=== PATIENT | male | born 1960 | race Caucasian/White ===

== ENCOUNTER → 2017-08-28 | Outpatient (CLI) | payer MEDICARE, OTHER ==
--- NOTE | 2017-08-28 21:42 | PE ---
EXAMINATION TYPE: PET CT fusion skull to thigh DATE OF EXAM: 08/28/2017 COMPARISON: Outside CTA chest August 12, 2017 HISTORY: Solitary pulmonary nodule per order . Abnormal CT. TECHNIQUE: Following the intravenous administration of 14.89 mCi of F-18 FDG, whole body images are performed from the skull base to the midthigh. Images are reviewed on the computer in the coronal, a xial, and sagittal planes. Reconstructed rotating images are created on independent workstation and reviewed on the computer. A localization and attenuation correction CT is performed in conjunction with the PET scan. SCAN: Initial Scan FINDINGS: SKULL BASE AND NECK: There is roughly 1.4 cm hypermetabolic focus posterior left parotid gland axial image 21. Max SUV is 9.06. There is smaller roughly 1 cm hypermetabolic focus deep right parotid gla nd axial image 20. Max SUV is 3.51. Bilateral parotid masses or neoplasms need to be considered. Michael elation with contrast-enhanced neck CT is advised. CHEST, MEDIASTINUM, AND HILAR REGION: There is persistent moderate-sized left-sided pleural fluid col lection which does not completely layer dependently but does not show hypermetabolic uptake. There is associated left lung compressive atelectasis. There is persistent suspicious posterior right lower lobe nodule measuring 2.6 x 1.4 cm axial image 1 26. There is mild hypermetabolic uptake, max SUV is 2.6 as well as adjacent groundglass opacity with mild hypermetabolic uptake and more focal consolidation in the dependent right lung base extending in feriorly to the diaphragm. There is background of advanced emphysematous change redemonstrated. No suspicious hypermetabolic upt jose rafael in thorax is clearly identified. There are prominent but subcentimeter thoracic lymph nodes, for reference axial image 84 AP window and paratracheal region, largest measures 1.8 x 0.9 cm right parac arinal level axial image 84 but no definitive hypermetabolic uptake is seen. This dominant lymph node has max SUV 2.57. ABDOMEN AND PELVIS: No suspicious hypermetabolic uptake is present. No adrenal masses are seen. Lori l bladder excretion is noted. OSSEOUS STRUCTURES: No suspicious hypermetabolic uptake is present. OTHER CT: There is mild calcified plaque at bilateral carotid bulbs. Main pulmonary artery measures 2.8 cm diameter on axial image 93. Adjacent ascending aorta measures u p to 3.5 cm in diameter. Coronary artery calcification is seen which is noted marker for coronary artery disease. There is moderate calcified plaque in the abdominal aorta extending into iliac branch vessels. There are scattered pelvic phleboliths. Patient has very little intra-abdominal fat making evaluation suboptimal. There is dominant 1.0 cm phlebolith right pelvis anteriorly axial image 219. There is postsurgical change in the lower lumbar spine. There is bilateral laminectomy defects and sp inous process resection. IMPRESSION: No convincing evidence of primary pulmonary malignancy, nonspecific areas of mild hyperme tabolic uptake in the suspicious posterior right basilar nodule favors postinflammatory with similar mild hypermetabolic in the prominent thoracic lymph nodes. I would likely advise short-term contrast enhanced CT follow-up in 2-3 months time. This would determine if repeat PET/CT would be advised. Att ention to bilateral parotid glands which is more suspicious and warrants more immediate follow-up.
== END | disposition home or self-care (01) ==
LOC: RADPETMAIN 10:07
PROVIDERS: ATTEND Internal Medicine Critical Care Medicine
DX: R91.1 Solitary pulmonary nodule (principal)
CPT/HCPCS: 78815; A9552

== ENCOUNTER → 2018-06-20 | Outpatient (CLI) | payer MEDICARE ==
--- NOTE | 2018-06-22 07:50 | CT ---
EXAMINATION TYPE: CT chest w con DATE OF EXAM: 06/20/2018 COMPARISON: 12/02/2017, 08/28/2017, and 08/12/2017 HISTORY: 57-year-old male Shortness of breath and cough. Lung mass. TECHNIQUE: Contiguous axial scanning of the chest after the administration of 100ml mL of Isovue M300 . Coronal/sagittal reconstructions performed. CT DLP: 347.4mGycm. Automatic exposure control utilized for a dose reduction. FINDINGS: Heart normal size with trace anterior basilar pericardial fluid. Aortic root and borderline aneurysmal at 4.0 cm. Conventional arch vessel branching anatomy. Mediastinal lymph nodes are nonenlarged and borderline enlarged, either stable or minimally smaller f rom prior exam measuring up to 1 cm in the precarinal region. This is unchanged. AP window lymph node measures 6 mm currently versus 7 mm on 12/02/2017. Right hilar lymph nodes measure 1.7 cm and a right infrahilar bronchial lymph node measures 1.4 cm. These are unchanged from 12/02/2017 but all of these are noted to be smaller as compared to 08/12/2017. No progressive lymphadenopathy. There is advanced bullous emphysema with improved left pleural effusion. A residual small left pleura l effusion remains with adjacent pleural parenchymal thickening. There is some curvilinear densities extending from the pleural margin centrally suggesting areas of pleural-parenchymal scarring and roun ded atelectasis. Prominent dependent subpleural opacities remain at the right mid and lower lung with 2 areas of more focal masslike configuration posteriorly axial image 51 measuring 3.5 cm versus 3.3 cm on 12/02/2017 a nd 2.5 cm on 08/12/2017. Second area more inferiorly and posterolaterally measures 3.[address] able from 12/02/2017 and smaller from 08/12/2017 where it measured 4.4 cm. However, surrounding patchy airspace disease appears increased from 08/12/2017 and slightly increased from 12/02/2017 as well. Co ntinued follow-up is recommended. Visualized upper abdomen shows no gross abnormality. Bones: No osseous destructive process. IMPRESSION: 1. Advanced bullous emphysema. 2. Improved left pleural effusion. A residual small left effusion remains, likely a complicated or ch ronic effusion. Adjacent subpleural densities are largely stable from 08/12/2017 and suspected to rep resent areas of pleural-parenchymal scarring and developing rounded atelectasis 3. Focal subpleural masslike areas of opacity at the posterior right lung base are relatively stable from 12/02/2017. They measure up to 3.5 cm. One of these appears larger from 08/12/2017 where it measu red 2.5 cm and the second appears smaller where it measured 4.4 cm. However, the surrounding airspace disease is increased from 08/12/2017 and slightly increased from 12/02/2017 as well. Correlate to exc lude infection. Continued follow-up recommended. Developing areas of rounded atelectasis and low-grad e neoplasm remain possibilities. The latter is considered somewhat less likely as one area shows slig ht decrease in size 4. Hilar and mediastinal lymphadenopathy is either stable or smaller, measuring up to 1.7 cm in the r ight hilum.
== END | disposition home or self-care (01) ==
LOC: RADCTMAIN 15:48
PROVIDERS: ATTEND Internal Medicine Critical Care Medicine
DX: J43.9 Emphysema, unspecified (principal); J90 Pleural effusion, not elsewhere classified; R59.0 Localized enlarged lymph nodes
CPT/HCPCS: 71260; Q9967

== ENCOUNTER → 2019-03-03 | Outpatient (CLI) | payer OTHER ==
--- NOTE | 2019-03-03 11:53 | CT ---
EXAMINATION TYPE: CT soft tissue neck w con DATE OF EXAM: 03/03/2019 HISTORY: No complaints at time of service COMPARISON: Chest CT June 20, 2018. PET CT August 28, 2017 CT DLP: 254.8 mGycm. Automated Exposure Control for Dose Reduction was Utilized. TECHNIQUE: CT scan of the neck is performed with IV Contrast, patient injected with 100 mL of Isovue 300, axial images are obtained, coronal and sagittal reformatted images are reviewed. FINDINGS: Airway: Thyroid gland remains normal in size no suspicious adjacent mass or nodularity is seen. There are few subcentimeter lymph nodes bilaterally for reference two are seen in left back axial image 41 supraclavicular region. Background moderate to advanced emphysematous change of the visualized upper lobes. Parotid/submandibular glands: No gross abnormality seen. Carotid/Vascular Structures: Mild calcified plaque bilateral carotid bulb. Codominant vertebrobasilar system. Osseous Structures: Loss of normal cervical curvature with mild disc space narrowing and moderate spu rring C5-C6 level . Moderate spurring and disc space narrowing C6-C7 level. Other: Scattered subcentimeter lymph nodes throughout the neck bilaterally. No definitive greater donte n 1 cm neck adenopathy. IMPRESSION: No suspicious adenopathy or extra thyroid mass to suggest parathyroid adenoma.
== END | disposition home or self-care (01) ==
LOC: RADCTMAIN 08:16
DX: D44.2 Neoplasm of uncertain behavior of parathyroid gland (principal)
CPT/HCPCS: 70491

== ENCOUNTER → 2019-06-22 | Outpatient (CLI) | payer MEDICARE ==
--- NOTE | 2019-06-22 10:07 | CT ---
EXAMINATION TYPE: CT chest w con DATE OF EXAM: 06/22/2019 COMPARISON: 06/20/2018 HISTORY: Lung mass CT DLP: 523 mGycm Automated exposure control for dose reduction was used. CONTRAST: CT scan of the chest is performed with IV Contrast, patient injected with 100 ml mL of Isovue 300. FINDINGS: LUNGS: There is a new left lower lobe pulmonary mass measuring 2.7 cm in greatest dimension with pleu ral extension. Subpleural masslike area right lower lobe is larger in size and measures 4.2 x 3.3 cm per 5 x 2.2 cm. Additional pleural thickening left lower lobe. Right lower lobe infiltrate is unchang ed. Severe upper lobe and midlung emphysematous change. MEDIASTINUM: Progression of mediastinal adenopathy with an enlarged necrotic AP window lymph node nanci suring 3.5 x 2.3 cm. Left hilar adenopathy measuring 3.7 x 2.3 cm. Left infrahilar adenopathy measuri ng 1.9 cm all new. There is subcarinal adenopathy measuring 2.2 cm. Low right paratracheal lymph node measures 1.1 cm. Additional AP window lymph node measures 1.2 cm. Thoracic aorta is of normal calibe r. The heart is not enlarged. UPPER ABDOMEN: No significant abnormality appreciated. OTHER: No additional significant abnormality is seen. IMPRESSION: 1. There is a new left lower lobe pulmonary mass with an enlarging subpleural mass noted the right lo wer lobe. There is also new hilar and mediastinal adenopathy. The findings are felt to reflect malign kurtis until proven otherwise. PET/CT and/or tissue diagnosis is advised. 2. Severe emphysematous changes as discussed.
== END | disposition home or self-care (01) ==
LOC: RADCTMAIN 08:54
PROVIDERS: ATTEND Internal Medicine Critical Care Medicine
DX: R91.8 Other nonspecific abnormal finding of lung field (principal)
CPT/HCPCS: 71260; Q9967

== ENCOUNTER 2019-12-23 16:36 | Inpatient (IN) | payer OTHER, MEDICARE ==
[2019-12-23] MEDS ORDERED: SODIUM CHLORIDE 0.9% 1,000 ML IV ONE (16:48)
--- NOTE | 2019-12-23 16:59 | ED ---
General Adult HPI - General Chief complaint: Overdose Stated complaint: Poss Overdose Time Seen by Provider: 12/23/19 16:45 Source: EMS, RN notes reviewed, old records reviewed Mode of arrival: EMS Limitations: altered mental status, physical limitation - History of Present Illness Initial comments: This is a 59-year-old male who is brought in by EMS. Patient himself is unable to give any history so the whole history is given by EMS. According to EMS he has a past history of COPD and some back pain. They stated that family stated he took 47 Valium and the last 6 days. According to he is been altered for 6 days but every day a little worse and today he was barely responsive. She decided to call EMS. There is been no history of any difficulty breathing no history of any fever or cough. There's been no history of any chest pain. His been no history of any abdominal pain nausea vomiting diarrhea. The main reason for the cause a significant altered mental status over 6 days. EMS did note that his heart rate was about 200 when he arrived and he is more responsive now following simple commands whereas initially he was not following anything. Patient did receive a liter fluid on the way in. - Related Data Home Medications Medication Instructions Recorded Confirmed Diazepam [Valium] 5 mg PO TID PRN 08/12/17 08/12/17 Ibuprofen [Motrin] 800 mg PO Q8H PRN 08/12/17 08/12/17 Allergies Allergy/AdvReac Type Severity Reaction Status Date / Time No Known Allergies Allergy Verified 08/12/17 15:12 Review of Systems ROS Statement: Those systems with pertinent positive or pertinent negative responses have been documented in the HPI. ROS Other: All systems not noted in ROS Statement are negative. Past Medical History Past Medical History: COPD History of Any Multi-Drug Resistant Organisms: None Reported Past Surgical History: Appendectomy, Orthopedic Surgery Additional Past Surgical History / Comment(s): lower back surgery, right BKA Past Anesthesia/Blood Transfusion Reactions: Unable to Obtain Past Psychological History: No Psychological Hx Reported Smoking Status: Current every day smoker Past Alcohol Use History: Occasional Past Drug Use History: Marijuana General Exam - General Exam Comments Initial Comments: GENERAL: Patient is well-developed and well-nourished. Patient is nontoxic and patient responds to simple commands but does not answer questions and is very lethargic ENT: Neck is soft and supple. No significant lymphadenopathy is noted. Oropharynx is clear. Moist mucous membranes. Neck has full range of motion without eliciting any pain. EYES: The sclera were anicteric and conjunctiva were pink and moist. Extraocular movements were intact and pupils were equal round and reactive to light. Eyelids were unremarkable. PULMONARY: Unlabored respirations. Good breath sounds bilaterally. No audible rales rhonchi or wheezing was noted. CARDIOVASCULAR: Patient is tachycardic in the 190 beats a minute ABDOMEN: Soft and nontender with normal bowel sounds. SKIN: Skin is clear with no lesions or rashes and otherwise unremarkable. NEUROLOGIC: Patient is alert and oriented 0 Cranial nerves II through XII are grossly intact. MUSCULOSKELETAL: BKA on the right LYMPHATICS: No significant lymphadenopathy is noted PSYCHIATRIC: Unable to assess at this time Limitations: altered mental status, physical limitation Course Vital Signs 12/23/19 12/23/19 12/23/19 16:46 19:03 19:17 Temperature 97.3 F L Pulse Rate 186 H 98 170 H Respiratory 26 H 26 H 28 H Rate Blood Pressure 102/88 98/79 111/85 O2 Sat by Pulse 98 98 97 Oximetry 12/23/19 19:51 Temperature Pulse Rate 142 H Respiratory 26 H Rate Blood Pressure 106/88 O2 Sat by Pulse 97 Oximetry Medical Decision Making - Medical Decision Making EKG shows supraventricular tachycardia at 191 bpm QRS is 82 QT interval is 238 QTC is 424. Patient blood pressure dropped at one point the heart rate in the 60s. I rep eated another EKG but very shortly thereafter the patient's heart rate went back up to 180. EKG shows an atrial flutter flutter again at a rapid ventricular response of 175 dresses 80 QT interval is 264 QTC is 450. I started the patient on amiodarone because of blood pressure was tentative and I did speak with Dr. Christianson about this and he was in agreement with this. I held the heparin secondary to the patient's brain lesions CT of the brain shows metastatic brain lesions in the right parietal region as well as a left cerebellar region - Lab Data Result diagrams: 12/23/19 16:52 12/23/19 16:52 Lab Results 12/23/19 12/23/19 12/23/19 Range/Units 16:52 16:52 16:52 WBC 17.9 H (3.8-10.6) k/uL RBC 4.60 (4.30-5.90) m/uL Hgb 14.0 (13.0-17.5) gm/dL Hct 45.1 (39.0-53.0) % MCV 98.0 (80.0-100.0) fL MCH 30.5 (25.0-35.0) pg MCHC 31.1 (31.0-37.0) g/dL RDW 14.3 (11.5-15.5) % Plt Count 433 (150-450) k/uL Neutrophils % 83 % Lymphocytes % 8 % Monocytes % 6 % Eosinophils % 1 % Basophils % 0 % Neutrophils # 14.8 H (1.3-7.7) k/uL Lymphocytes # 1.5 (1.0-4.8) k/uL Monocytes # 1.2 H (0-1.0) k/uL Eosinophils # 0.2 (0-0.7) k/uL Basophils # 0.0 (0-0.2) k/uL Hypochromasia Moderate PT 14.7 H (9.0-12.0) sec INR 1.5 H (<1.2) APTT 25.5 (22.0-30.0) sec D-Dimer 3.08 H (<0.60) mg/L FEU Sodium 137 (137-145) mmol/L Potassium 4.7 (3.5-5.1) mmol/L Chloride 102 (98-107) mmol/L Carbon Dioxide 28 (22-30) mmol/L Anion Gap 7 mmol/L BUN 27 H (9-20) mg/dL Creatinine 0.77 (0.66-1.25) mg/dL Est GFR (CKD-EPI)AfAm >90 (>60 ml/min/1.73 sqM) Est GFR (CKD-EPI)NonAf >90 (>60 ml/min/1.73 sqM) Glucose 122 H (74-99) mg/dL POC Glucose (mg/dL) (75-99) mg/dL POC Glu Hat Presser ID Calcium 8.6 (8.4-10.2) mg/dL Total Bilirubin 0.8 (0.2-1.3) mg/dL AST 541 H (17-59) U/L ALT 313 H (4-49) U/L Alkaline Phosphatase 141 H (38-126) U/L Ammonia (<30) umol/L Troponin I (0.000-0.034) ng/mL Total Protein 6.9 (6.3-8.2) g/dL Albumin 3.3 L (3.5-5.0) g/dL TSH 4.910 H (0.465-4.680) mIU/L Urine Color Urine Appearance (Clear) Urine pH (5.0-8.0) Ur Specific Garrett (1.001-1.035) Urine Protein (Negative) Urine Glucose (UA) (Negative) Urine Ketones (Negative) Urine Blood (Negative) Urine Nitrite (Negative) Urine Bilirubin (Negative) Urine Urobilinogen (<2.0) mg/dL Ur Leukocyte Esterase (Negative) Urine WBC (0-5) /hpf Hyaline Casts (0-2) /lpf Urine Mucus (None) /hpf Urine Opiates Screen (NotDetected) Ur Oxycodone Screen (NotDetected) Urine Methadone Screen (NotDetected) Ur Propoxyphene Screen (NotDetected) Ur Barbiturates Screen (NotDetected) U Tricyclic Antidepress (NotDetected) Ur Phencyclidine Scrn (NotDetected) Ur Amphetamines Screen (NotDetected) U Methamphetamines Scrn (NotDetected) U Benzodiazepines Scrn (NotDetected) Urine Cocaine Screen (NotDetected) U Marijuana (THC) Screen (NotDetected) Coronavirus (PCR) (Not Detectd) 12/23/19 12/23/19 12/23/19 Range/Units 16:52 16:52 17:00 WBC (3.8-10.6) k/uL RBC (4.30-5.90) m/uL Hgb (13.0-17.5) gm/dL Hct (39.0-53.0) % MCV (80.0-100.0) fL MCH (25.0-35.0) pg MCHC (31.0-37.0) g/dL RDW (11.5-15.5) % Plt Count (150-450) k/uL Neutrophils % % Lymphocytes % % Monocytes % % Eosinophils % % Basophils % % Neutrophils # (1.3-7.7) k/uL Lymphocytes # (1.0-4.8) k/uL Monocytes # (0-1.0) k/uL Eosinophils # (0-0.7) k/uL Basophils # (0-0.2) k/uL Hypochromasia PT (9.0-12.0) sec INR (<1.2) APTT (22.0-30.0) sec D-Dimer (<0.60) mg/L FEU Sodium (137-145) mmol/L Potassium (3.5-5.1) mmol/L Chloride (98-107) mmol/L Carbon Dioxide (22-30) mmol/L Anion Gap mmol/L BUN (9-20) mg/dL Creatinine (0.66-1.25) mg/dL Est GFR (CKD-EPI)AfAm (>60 ml/min/1.73 sqM) Est GFR (CKD-EPI)NonAf (>60 ml/min/1.73 sqM) Glucose (74-99) mg/dL POC Glucose (mg/dL) 142 H (75-99) mg/dL POC Glu Hat Presser [place]ENRIET[place] John Lau Calcium (8.4-10.2) mg/dL Total Bilirubin (0.2-1.3) mg/dL AST (17-59) U/L ALT (4-49) U/L Alkaline Phosphatase (38-126) U/L Ammonia <9 (<30) umol/L Troponin I <0.012 (0.000-0.034) ng/mL Total Protein (6.3-8.2) g/dL Albumin (3.5-5.0) g/dL TSH (0.465-4.680) mIU/L Urine Color Urine Appearance (Clear) Urine pH (5.0-8.0) Ur Specific Garrett (1.001-1.035) Urine Protein (Negative) Urine Glucose (UA) (Negative) Urine Ketones (Negative) Urine Blood (Negative) Urine Nitrite (Negative) Urine Bilirubin (Negative) Urine Urobilinogen (<2.0) mg/dL Ur Leukocyte Esterase (Negative) Urine WBC (0-5) /hpf Hyaline Casts (0-2) /lpf Urine Mucus (None) /hpf Urine Opiates Screen (NotDetected) Ur Oxycodone Screen (NotDetected) Urine Methadone Screen (NotDetected) Ur Propoxyphene Screen (NotDetected) Ur Barbiturates Screen (NotDetected) U Tricyclic Antidepress (NotDetected) Ur Phencyclidine Scrn (NotDetected) Ur Amphetamines Screen (NotDetected) U Methamphetamines Scrn (NotDetected) U Benzodiazepines Scrn (NotDetected) Urine Cocaine Screen (NotDetected) U Marijuana (THC) Screen (NotDetected) Coronavirus (PCR) (Not Detectd) 12/23/19 12/23/19 12/23/19 Range/Units 17:08 19:00 19:00 WBC (3.8-10.6) k/uL RBC (4.30-5.90) m/uL Hgb (13.0-17.5) gm/dL Hct (39.0-53.0) % MCV (80.0-100.0) fL MCH (25.0-35.0) pg MCHC (31.0-37.0) g/dL RDW (11.5-15.5) % Plt Count (150-450) k/uL Neutrophils % % Lymphocytes % % Monocytes % % Eosinophils % % Basophils % % Neutrophils # (1.3-7.7) k/uL Lymphocytes # (1.0-4.8) k/uL Monocytes # (0-1.0) k/uL Eosinophils # (0-0.7) k/uL Basophils # (0-0.2) k/uL Hypochromasia PT (9.0-12.0) sec INR (<1.2) APTT (22.0-30.0) sec D-Dimer (<0.60) mg/L FEU Sodium (137-145) mmol/L Potassium (3.5-5.1) mmol/L Chloride (98-107) mmol/L Carbon Dioxide (22-30) mmol/L Anion Gap mmol/L BUN (9-20) mg/dL Creatinine (0.66-1.25) mg/dL Est GFR (CKD-EPI)AfAm (>60 ml/min/1.73 sqM) Est GFR (CKD-EPI)NonAf (>60 ml/min/1.73 sqM) Glucose (74-99) mg/dL POC Glucose (mg/dL) (75-99) mg/dL POC Glu Hat Presser ID Calcium (8.4-10.2) mg/dL Total Bilirubin (0.2-1.3) mg/dL AST (17-59) U/L ALT (4-49) U/L Alkaline Phosphatase (38-126) U/L Ammonia (<30) umol/L Troponin I (0.000-0.034) ng/mL Total Protein (6.3-8.2) g/dL Albumin (3.5-5.0) g/dL TSH (0.465-4.680) mIU/L Urine Color Yellow Urine Appearance Clear (Clear) Urine pH 6.0 (5.0-8.0) Ur Specific Garrett 1.027 (1.001-1.035) Urine Protein 1+ H (Negative) Urine Glucose (UA) Negative (Negative) Urine Ketones Negative (Negative) Urine Blood Negative (Negative) Urine Nitrite Negative (Negative) Urine Bilirubin Negative (Negative) Urine Urobilinogen 2.0 (<2.0) mg/dL Ur Leukocyte Esterase Negative (Negative) Urine WBC <1 (0-5) /hpf Hyaline Casts 3 H (0-2) /lpf Urine Mucus Rare H (None) /hpf Urine Opiates Screen Not Detected (NotDetected) Ur Oxycodone Screen Not Detected (NotDetected) Urine Methadone Screen Not Detected (NotDetected) Ur Propoxyphene Screen Not Detected (NotDetected) Ur Barbiturates Screen Not Detected (NotDetected) U Tricyclic Antidepress Not Detected (NotDetected) Ur Phencyclidine Scrn Not Detected (NotDetected) Ur Amphetamines Screen Not Detected (NotDetected) U Methamphetamines Scrn Not Detected (NotDetected) U Benzodiazepines Scrn Detected H (NotDetected) Urine Cocaine Screen Not Detected (NotDetected) U Marijuana (THC) Screen Detected H (NotDetected) Coronavirus (PCR) Not Detected (Not Detectd) Critical Care Time Critical Care Time: Yes Total Critical Care Time: 35 Disposition Clinical Impression: Diazepam overdose, Atrial flutter with rapid ventricular response, Altered mental status, Malignant neoplasm metastatic to brain Disposition: ADMITTED IP TO THIS HOSP Referrals: [facility],Clinic [Primary Care Provider] - 1-2 days Time of Disposition: 19:59
[2019-12-23 17:02] LABS: Glucose,Whole Blood 142 mg/dL (75-99)
[2019-12-23 17:06] LABS: Basophils % (A) 0 %; Eosinophils # (A) 0.2 k/uL (0-0.7); Eosinophils % (A) 1 %; HCT 45.1 % (39.0-53.0); Hypochromasia Moderate; Lymphocytes # (A) 1.5 k/uL (1.0-4.8); Lymphocytes % (A) 8 %; MCH 30.5 pg (25.0-35.0); MCHC 31.1 g/dL (31.0-37.0); Mean Platelet Volume 7.9; Monocytes # (A) 1.2 k/uL (0-1.0); Monocytes % (A) 6 %; Neutrophils # (A) 14.8 k/uL (1.3-7.7); Neutrophils % (A) 83 %; Platelet Count 433 k/uL (150-450); RDW 14.3 % (11.5-15.5); WBC 17.9 k/uL (3.8-10.6)
[2019-12-23] MEDS: ADENOSINE 3 MG/ML 2 ML VIAL IVP STA ×3 (17:15→17:19)
[2019-12-23 17:19] LABS: ALT 313 U/L (4-49); AST 541 U/L (17-59); African American GFR (CKD) >90 (>60 ml/min/1.73 sqM); Albumin 3.3 g/dL (3.5-5.0); Alkaline Phosphatase 141 U/L (38-126); Anion Gap 7 mmol/L; Blood Urea Nitrogen 27 mg/dL (9-20); Calcium 8.6 mg/dL (8.4-10.2); Carbon Dioxide 28 mmol/L (22-30); Chloride 102 mmol/L (98-107); Glucose 122 mg/dL (74-99); INR 1.5 (<1.2); Non-African American GFR(CKD) >90 (>60 ml/min/1.73 sqM); Partial Thromboplastin Time 25.5 sec (22.0-30.0); Potassium 4.7 mmol/L (3.5-5.1); Prothrombin Time 14.7 sec (9.0-12.0); Sodium 137 mmol/L (137-145); Total Bilirubin 0.8 mg/dL (0.2-1.3); Total Protein 6.9 g/dL (6.3-8.2)
[2019-12-23] MEDS ORDERED: DILTIAZEM DRIP BOLUS FROM BAG 1 MG SOLN IV ONE (17:23)
[2019-12-23] MEDS ORDERED: HEPARIN SODIUM,PORCINE 5,000 UNIT/ML 1 ML VIAL IV ONE (17:23)
[2019-12-23] MEDS ORDERED: HEPARIN SOD,PORK IN 0.45% NACL 25,000 UNIT in 0.45% NACL 1 250ML.BAG IV SCH (17:30)
[2019-12-23] MEDS ORDERED: DILTIAZEM 125 MG in SODIUM CHLORIDE 0.9% 100 ML IV SCH (17:30)
[2019-12-23 17:34] LABS: D-Dimer 3.08 mg/L FEU (<0.60)
--- NOTE | 2019-12-23 18:18 | CT ---
EXAMINATION TYPE: CT brain wo con DATE OF EXAM: 12/23/2019 COMPARISON: None HISTORY: Altered mental status. CT DLP: 1094.4 mGycm Automated exposure control for dose reduction was used. Exam performed with no contrast. Ventricles have fairly normal size. There is cerebral cortical atrop hy. There is somewhat rounded 2.8 cm area of hypodensity in the inferior left cerebellar hemisphere. There is irregular 2 cm area of hypodensity in the medial superior left cerebellar hemisphere. There is 1.5 cm hypodense area in the cortex right posterior parietal lobe. There is no evidence of intracr anial hemorrhage. There is some suggestion of minimal mass effect of the fourth ventricle on the left side. IMPRESSION: There is evidence of low density mass left cerebellar hemisphere with slight effacement of the fourth ventricle suggestive of tumor. Similar hypodense focus in the superior left cerebellar hemisphere. H ypodense area right posterior parietal lobe cortex. Contrast CT scan or MR scan would BE helpful for further evaluation if clinically indicated. Metastatic disease is suspected. Brain abscess not exclud ed.
[2019-12-23] MEDS ORDERED: DEXAMETHASONE SOD PHOSPHATE 10 MG/ML 1 ML VIAL IV STA (18:59)
[2019-12-23] MEDS ORDERED: AMIODARONE 360 MG in DEXTROSE 5% IN WATER 200 ML IV ONE ×2 (19:13)
[2019-12-23] MEDS ORDERED: DEXTROSE 5% IN WATER 100 ML with AMIODARONE 150 MG IV ONE (19:13)
[2019-12-23 19:40] LABS: Appearance,Urine Clear (Clear); Bilirubin,Urine Negative (Negative); Blood,Urine Negative (Negative); Color,Urine Yellow; Glucose,Urine (UA) Negative (Negative); Hyaline Casts,Urine 3 /lpf (0-2); Ketones,Urine Negative (Negative); Leukocyte Esterase,Urine Negative (Negative); Mucus,Urine Rare /hpf; Nitrite,Urine Negative (Negative); Protein,Urine 1+ (Negative); Specific Gravity,Urine 1.027 (1.001-1.035); WBC,Urine <1 /hpf (0-5)
[2019-12-23 19:56] LABS: Amphetamine Screen,Urine Not Detected (NotDetected); Barbiturate Screen,Urine Not Detected (NotDetected); Benzodiazepines Screen,Urine Detected (NotDetected); Cocaine Screen,Urine Not Detected (NotDetected); Methadone Screen, Urine Not Detected (NotDetected); Opiate Screen,Urine Not Detected (NotDetected); Oxycodone Screen, Urine Not Detected (NotDetected); Phencyclidine Screen,Urine Not Detected (NotDetected); Tricyclic Antidepressant,Urine Not Detected (NotDetected); Urn Cannabinoid Scrn Detected (NotDetected)
[2019-12-23 20:14] LABS: T4, Free (Free Thyroxine) 1.68 ng/dL (0.78-2.19)
--- NOTE | 2019-12-23 20:14 | CT ---
EXAMINATION TYPE: CT chest angio for PE DATE OF EXAM: 12/23/2019 COMPARISON: 06/22/2019 HISTORY: Shortness of breath. Lung mass CT DLP: 384 mGycm Automated exposure control for dose reduction was used. CONTRAST: Performed with IV Contrast, patient injected with 100 mL of Isovue 370. There are 3-D post processed images. The left hemithorax is opacified with pleural fluid and pulmonary mass. There is an approximate 13 x 8 cm mass at the left pulmonary hilum. There is airspace consolidation and atelectasis at the right p osterior lung field. There is diffuse bullous emphysema in the right lung. There is narrowing of the branches of the left lower lobe artery consistent with encasement with tumor. There is subcarinal mas s that measures 3.3 cm. There is almost complete occlusion of the left upper lobe pulmonary artery ap parently due to encasement with tumor mass. I see no filling defects in the right pulmonary artery. H eart size is normal. There is no pericardial effusion. The thoracic spine shows no compression fractu re. The ribs appear intact. IMPRESSION: No evidence of pulmonary embolism. Narrowing of multiple branches of the left pulmonary artery consis tent with encasement with tumor. This is a significant change compared to old exam. There is airspace consolidation and atelectasis right lower lobe posteriorly that is progressed somewhat compared to l ast exam. Bullous emphysema. Very large mass at the left pulmonary hilum which has increased signific antly compared to old exam.
[2019-12-23] MEDS: SODIUM CHLORIDE 0.9% 1,000 ML IV ONE (22:19)
[2019-12-24] MEDS: AMIODARONE 300 MG in DEXTROSE 5% IN WATER 250 ML IV SCH ×6 (02:00→21:59)
[2019-12-24] MEDS: SODIUM CHLORIDE 0.9% 1,000 ML IV ONE (02:01)
[2019-12-24] MEDS: METOPROLOL TARTRATE 25 MG TAB PO SCH ×2 (10:50→21:28)
[2019-12-24 11:22] VITALS: BMI 20.5
--- NOTE | 2019-12-24 11:41 | P.CRDCN ---
History of Present Illness Consult date: 12/24/19 Requesting physician: Susi Adrian Reason for Consult (text): SVT/atrial flutter Chief complaint: Altered mental status History of present illness: This is a 59-year-old gentleman with history of right below the knee amputation, nicotine dependence, COPD, who initially presented to the emergency room because of altered mental status. Patient has been having back pain at home and has been taking significant amount of Valium over the past 6 days. CAT scan of the brain reveals a positive brain tumor, metastatic disease is suspected. CTA of the chest did not reveal any evidence of pulmonary embolism, it did show a large mass at the left pulmonary hilum. EKG on presentation here showed a supraventricular tachycardia with a heart rate of 190, subsequent EKG showed atrial flutter with rapid ventricular response. Blood pressure 112/70, heart rate 1:30, respirations 18, 96% on 2 L of oxygen. White blood cell count 17.9, hemoglobin 14, platelet count 433. Sodium 137, potassium 4.7, BUN 27 and creatinine 0.7. AST 541, ALT 313, alk phos 141. Troponin 0.012, TSH 4.9, T4 1 0.6, d-dimer 3.08, drug screen positive for benzos and marijuana. Arellano virus detected. At the time of examination today, patient is quite confused. Past Medical History Past Medical History: COPD History of Any Multi-Drug Resistant Organisms: None Reported Past Surgical History: Appendectomy, Orthopedic Surgery Additional Past Surgical History / Comment(s): lower back surgery, right BKA Past Anesthesia/Blood Transfusion Reactions: Unable to Obtain Past Psychological History: No Psychological Hx Reported Smoking Status: Current every day smoker Past Alcohol Use History: Occasional Past Drug Use History: Marijuana Medications and Allergies Home Medications Medication Instructions Recorded Confirmed Type Diazepam [Valium] 5 mg PO BID@0800,1200 PRN 08/12/17 12/23/19 History Albuterol Inhaler [Ventolin Hfa 1 puff INHALATION RT-Q4H PRN 12/23/19 12/23/19 History Inhaler] Albuterol Nebulized [Ventolin 2.5 mg INHALATION RT-Q4H 12/23/19 12/23/19 History Nebulized] Atorvastatin [Lipitor] 10 mg PO HS 12/23/19 12/23/19 History Budesonide/Formoterol Fumarate 2 puff INHALATION BID 12/23/19 12/23/19 History [Symbicort 160-4.5 Mcg Inhaler] Celecoxib [CeleBREX] 200 mg PO BID 12/23/19 12/23/19 History Diazepam [Valium] 10 mg PO HS PRN 12/23/19 12/23/19 History Gabapentin [Neurontin] 400 mg PO TID 12/23/19 12/23/19 History Lidocaine 4% Cream [Lmx 4] 1 applic TOPICAL TID PRN 12/23/19 12/23/19 History [place]-3 Fatty Acids/Fish Oil [Fish 1 cap PO DAILY 12/23/19 12/23/19 History Oil 1,000 mg Softgel] traZODone HCL [TraZODone HCl] 50 mg PO HS 12/23/19 12/23/19 History Allergies Allergy/AdvReac Type Severity Reaction Status Date / Time No Known Allergies Allergy Verified 12/23/19 23:16 Physical Exam Vitals: Vital Signs Temp Pulse Pulse Resp BP BP Pulse Ox 12/24/19 08:00 98.5 F 134 H 18 115/88 95 12/24/19 03:47 131 H 18 112/76 96 12/24/19 00:00 133 H 20 106/74 96 12/23/19 21:20 139 H 26 H 98/70 97 12/23/19 20:36 98.3 F 133 H 22 109/78 95 12/23/19 19:51 142 H 26 H 106/88 97 12/23/19 19:17 170 H 28 H 111/85 97 12/23/19 19:03 98 26 H 98/79 98 12/23/19 16:46 97.3 F L 186 H 26 H 102/88 98 Intake and Output 12/23/19 12/24/19 12/24/19 22:59 06:59 14:59 Intake Total 150.615 800 Balance 150.615 800 Intake: Intake, IV Titration 150.615 800 Amount Amiodarone 360 mg In 200 Dextrose 5% in Water 200 ml @ 1 MG/MIN 33.333 mls/ hr IV .Q6H [facility] Rx#: [id number] Heparin Sod,Pork in 0.45% 0.615 NaCl 25,000 unit In 0.45 % NaCl 1 250ml.bag @ 12 UNITS/KG/HR 7.38 mls/hr IV .Q24H [facility] Rx#: [id number] Sodium Chloride 0.9% 1, 150 600 000 ml @ 75 mls/hr IV . [id number] [facility] Rx#:[id number] Oral 0 Other: Weight 61.5 kg 72.5 kg 72.5 kg PHYSICAL EXAMINATION: GENERAL: 59-year-old gentleman in no acute distress at the time of my exam ination HEENT: Head is atraumatic, normocephalic. Pupils equal, round. Sclera anicteric. Conjunctiva are clear. Mucous membranes of the mouth are moist. Neck is supple. There is no elevated jugular venous pressure. No carotid bruit is heard. HEART EXAMINATION: Heart S1, S2 normal. No murmur or gallop heard. CHEST EXAMINATION: Lungs are clear to auscultation and precussion. No chest wall tenderness is noted on palpation or with deep breathing. ABDOMEN: Soft, nontender. Bowel sounds are heard. No organomegaly noted. EXTREMITIES: 2+ peripheral pulse to the left foot, patient has a right BKA, with no evidence of peripheral edema and no calf tenderness noted. NEUROLOGIC [patient is awake, alert and confused. Results 12/23/19 16:52 12/23/19 16:52 Cardiac Enzymes 12/23/19 12/23/19 Range/Units 16:52 16:52 AST 541 H (17-59) U/L Troponin I <0.012 (0.000-0.034) ng/mL Coagulation 12/23/19 Range/Units 16:52 PT 14.7 H (9.0-12.0) sec APTT 25.5 (22.0-30.0) sec CBC 12/23/19 Range/Units 16:52 WBC 17.9 H (3.8-10.6) k/uL RBC 4.60 (4.30-5.90) m/uL Hgb 14.0 (13.0-17.5) gm/dL Hct 45.1 (39.0-53.0) % Plt Count 433 (150-450) k/uL Comprehensive Metabolic Panel 12/23/19 Range/Units 16:52 Sodium 137 (137-145) mmol/L Potassium 4.7 (3.5-5.1) mmol/L Chloride 102 (98-107) mmol/L Carbon Dioxide 28 (22-30) mmol/L BUN 27 H (9-20) mg/dL Creatinine 0.77 (0.66-1.25) mg/dL Glucose 122 H (74-99) mg/dL Calcium 8.6 (8.4-10.2) mg/dL AST 541 H (17-59) U/L ALT 313 H (4-49) U/L Alkaline Phosphatase 141 H (38-126) U/L Total Protein 6.9 (6.3-8.2) g/dL Albumin 3.3 L (3.5-5.0) g/dL Current Medications Generic Name Dose Route Start Last Admin Trade Name Freq PRN Reason Stop Dose Admin Amiodarone HCl 300 mg/ 250 mls @ 25 mls/hr 12/24/19 02:00 12/24/19 02:00 Dextrose/Water IV 12/24/19 19:59 0.5 mg/min .Q10H [facility] 25 mls/hr Administration Protocol 0.5 MG/MIN Metoprolol Tartrate 25 mg 12/24/19 09:00 12/24/19 10:50 Lopressor PO 25 mg BID LIN Administration Intake and Output 12/23/19 12/24/19 12/24/19 22:59 06:59 14:59 Intake Total 150.615 800 Balance 150.615 800 Intake: Intake, IV Titration 150.615 800 Amount Amiodarone 360 mg In 200 Dextrose 5% in Water 200 ml @ 1 MG/MIN 33.333 mls/ hr IV .Q6H [facility] Rx#: [id number] Heparin Sod,Pork in 0.45% 0.615 NaCl 25,000 unit In 0.45 % NaCl 1 250ml.bag @ 12 UNITS/KG/HR 7.38 mls/hr IV .Q24H [facility] Rx#: [id number] Sodium Chloride 0.9% 1, 150 600 000 ml @ 75 mls/hr IV . [id number] [facility] Rx#:[id number] Oral 0 Other: Weight 61.5 kg 72.5 kg 72.5 kg Patient Weight 12/25/19 06:59 Weight 72.5 kg 12/23/19 16:52 12/23/19 16:52 EKG Interpretations (text) Initial EKG showed supraventricular tachycardia with a heart rate of 190, subsequent EKG showed atrial flutter with a rapid ventricular response Assessment and Plan Plan: Assessment and plan #1 supraventricular tachycardia, atrial flutter with rapid ventricular response. Patient currently on IV amiodarone. #2 nicotine dependence #3 COPD #4 evidence of brain metastases with large lung mass #5 elevated d-dimer, CT of the chest negative for pulmonary embolism. #6 elevated liver enzymes Plan We will obtain an echocardiogram with Doppler study, continue the IV amiodarone and once this is finished we will start the patient on 400 mg of amiodarone twice a day. No anticoagulation at this time. We will initiate a beta jos. Further recommendations to follow. DNP note has been reviewed, I agree with a documented findings and plan of care. Patient was seen and examined.
[2019-12-24] MEDS ORDERED: LIDOCAINE 4% CREAM 5 GM TUBE TOPICAL PRN (11:50)
[2019-12-24] MEDS ORDERED: ALBUTEROL NEBULIZED 2.5 MG/3 ML INHALATION PRN (11:50)
[2019-12-24] MEDS ORDERED: ALBUTEROL NEBULIZED 2.5 MG/3 ML INHALATION SCH (12:00)
[2019-12-24] MEDS ORDERED: IPRATROPIUM-ALBUTEROL 3 ML NEB INHALATION PRN (12:07)
--- NOTE | 2019-12-24 12:20 | P.HPIM ---
History of Present Illness 59-year-old pleasant male with history of COPD continued nicotine dependence who came in because of altered mental status patient is alert oriented 0 patient is completely confused at this time. Patient is having low back pain because of which patient has been taking Valium the past 6 days patient took about 54 pills of Valium. Patient unable to provide any history to me although patient doesn't have any fever chills patient was tachycardic with elevated d-dimer because of his CT angios the chest was obtained which did not show any pulmonary embolism but did show a large mass in the left coronary hilum and patient had a Head CAT scan which showed metastatic disease with multiple metastatic lesions to the brain probably primary being lung cancer. Patient EKG showed super ventricular tachycardia followed by atrial flutter with rapid ventricular response patient was initially on diltiazem with because of the drop in blood pressure patient was switched to amiodarone patient is on IV heparin patient was is now on metop rolol cardiology evaluated the patient. Patient urine drug screen is positive for benzos and marijuana. Patient doesn't have any pneumonia. Patient upon exam is wheezing does have COPD. Patient looks very older than his stated age. Review of Systems Unable to obtain due to his clinical condition Past Medical History Past Medical History: COPD History of Any Multi-Drug Resistant Organisms: None Reported Past Surgical History: Appendectomy, Orthopedic Surgery Additional Past Surgical History / Comment(s): lower back surgery, right BKA Past Anesthesia/Blood Transfusion Reactions: Unable to Obtain Past Psychological History: No Psychological Hx Reported Smoking Status: Current every day smoker Past Alcohol Use History: Occasional Past Drug Use History: Marijuana Medications and Allergies Home Medications Medication Instructions Recorded Confirmed Type Diazepam [Valium] 5 mg PO BID@0800,1200 PRN 08/12/17 12/23/19 History Albuterol Inhaler [Ventolin Hfa 1 puff INHALATION RT-Q4H PRN 12/23/19 12/23/19 History Inhaler] Albuterol Nebulized [Ventolin 2.5 mg INHALATION RT-Q4H 12/23/19 12/23/19 History Nebulized] Atorvastatin [Lipitor] 10 mg PO HS 12/23/19 12/23/19 History Budesonide/Formoterol Fumarate 2 puff INHALATION BID 12/23/19 12/23/19 History [Symbicort 160-4.5 Mcg Inhaler] Celecoxib [CeleBREX] 200 mg PO BID 12/23/19 12/23/19 History Diazepam [Valium] 10 mg PO HS PRN 12/23/19 12/23/19 History Gabapentin [Neurontin] 400 mg PO TID 12/23/19 12/23/19 History Lidocaine 4% Cream [Lmx 4] 1 applic TOPICAL TID PRN 12/23/19 12/23/19 History [place]-3 Fatty Acids/Fish Oil [Fish 1 cap PO DAILY 12/23/19 12/23/19 History Oil 1,000 mg Softgel] traZODone HCL [TraZODone HCl] 50 mg PO HS 12/23/19 12/23/19 History Allergies Allergy/AdvReac Type Severity Reaction Status Date / Time No Known Allergies Allergy Verified 12/23/19 23:16 Physical Exam Vitals: Vital Signs Temp Pulse Pulse Resp BP BP Pulse Ox 12/24/19 08:00 98.5 F 134 H 18 115/88 95 12/24/19 03:47 131 H 18 112/76 96 12/24/19 00:00 133 H 20 106/74 96 12/23/19 21:20 139 H 26 H 98/70 97 12/23/19 20:36 98.3 F 133 H 22 109/78 95 12/23/19 19:51 142 H 26 H 106/88 97 12/23/19 19:17 170 H 28 H 111/85 97 12/23/19 19:03 98 26 H 98/79 98 12/23/19 16:46 97.3 F L 186 H 26 H 102/88 98 Intake and Output 12/23/19 12/24/19 12/24/19 22:59 06:59 14:59 Intake Total 150.615 800 Balance 150.615 800 Intake: Intake, IV Titration 150.615 800 Amount Amiodarone 360 mg In 200 Dextrose 5% in Water 200 ml @ 1 MG/MIN 33.333 mls/ hr IV .Q6H [facility] Rx#: [id number] Heparin Sod,Pork in 0.45% 0.615 NaCl 25,000 unit In 0.45 % NaCl 1 250ml.bag @ 12 UNITS/KG/HR 7.38 mls/hr IV .Q24H [facility] Rx#: [id number] Sodium Chloride 0.9% 1, 150 600 000 ml @ 75 mls/hr IV . [id number] [facility] Rx#:[id number] Oral 0 Other: Weight 61.5 kg 72.5 kg 72.5 kg PHYSICAL EXAMINATION: GENERAL: The patient is alert and oriented x0, not in any acute distress. Well developed, well nourished. HEENT: Pupils are round and equally reacting to light. EOMI. No scleral icterus. No conjunctival pallor. Normocephalic, atraumatic. No pharyngeal erythema. No thyromegaly. CARDIOVASCULAR: S1 and S2 present. No murmurs, rubs, or gallops. PULMONARY: Significant Wheezing or crackles are appreciated ABDOMEN: Soft, nontender, nondistended, normoactive bowel sounds. No palpable or ganomegaly. MUSCULOSKELETAL: No joint swelling or deformity. EXTREMITIES: No cyanosis, clubbing, or pedal edema. NEUROLOGICAL: Confused does not appear to have any focal deficits at this time but exam is limited because of limited to follow commands SKIN: No rashes. Results CBC & Chem 7: 12/23/19 16:52 12/23/19 16:52 Labs: Abnormal Lab Results - Last 24 Hours (Table) 12/23/19 12/23/19 12/23/19 Range/Units 16:52 16:52 16:52 WBC 17.9 H (3.8-10.6) k/uL Neutrophils # 14.8 H (1.3-7.7) k/uL Monocytes # 1.2 H (0-1.0) k/uL PT 14.7 H (9.0-12.0) sec INR 1.5 H (<1.2) D-Dimer 3.08 H (<0.60) mg/L FEU BUN 27 H (9-20) mg/dL Glucose 122 H (74-99) mg/dL POC Glucose (mg/dL) (75-99) mg/dL AST 541 H (17-59) U/L ALT 313 H (4-49) U/L Alkaline Phosphatase 141 H (38-126) U/L Albumin 3.3 L (3.5-5.0) g/dL TSH 4.910 H (0.465-4.680) mIU/L Urine Protein (Negative) Hyaline Casts (0-2) /lpf Urine Mucus (None) /hpf U Benzodiazepines Scrn (NotDetected) U Marijuana (THC) Screen (NotDetected) 12/23/19 12/23/19 12/23/19 Range/Units 17:00 19:00 19:00 WBC (3.8-10.6) k/uL Neutrophils # (1.3-7.7) k/uL Monocytes # (0-1.0) k/uL PT (9.0-12.0) sec INR (<1.2) D-Dimer (<0.60) mg/L FEU BUN (9-20) mg/dL Glucose (74-99) mg/dL POC Glucose (mg/dL) 142 H (75-99) mg/dL AST (17-59) U/L ALT (4-49) U/L Alkaline Phosphatase (38-126) U/L Albumin (3.5-5.0) g/dL TSH (0.465-4.680) mIU/L Urine Protein 1+ H (Negative) Hyaline Casts 3 H (0-2) /lpf Urine Mucus Rare H (None) /hpf U Benzodiazepines Scrn Detected H (NotDetected) U Marijuana (THC) Screen Detected H (NotDetected) Thrombosis Risk Factor Assmnt - Choose All That Apply Any of the Below Risk Factors Present?: Yes Each Factor Represents 1 point: Age 41-60 years, Medical pt on bed rest Other Risk Factors: Yes Each Risk Factor Represents 2 Points: Malignancy Other congenital or acquired thrombophilia - If yes, enter type in comment: No Thrombosis Risk Factor Assessment Total Risk Factor Score: 4 Thrombosis Risk Factor Assessment Level: Moderate Risk Assessment and Plan Plan: -Altered mental status, delirium secondary to toxic encephalopathy from Valium rather than metastatic disease to brain supportive care patient is awake now.. Drug screen positive for benzodiazepines because of his Valium intake. -Metastatic disease to brain probably primary being lung cancer. Oncology was consulted patient need biopsy of the lung lesion. Patient will probably need an MRI as well the patient was restarted on Decadron. Monogamous beneficial as t here is no significant edema on the CAT scan of the head. -Probably primary lung cancer: Will need biopsy pulmonary will be consulted -Atrial flutter with rapid and regular rate. Patient is in metoprolol at this time echo cardiac rhythm is being obtained patient is on IV heparin. -Acute on chronic hypercapnic respiratory failure secondary to COPD exacerbation continue with Decadron inhalational treatments patient doesn't have any pneumonia or bronchitis will not require any antibiotics -Mildly elevated liver enzymes etiology is not clear will obtain a ultrasound of the abdomen can be secondary to metastatic lesions obtain ultrasound of the liver gallbladder and hepatitis panel -Elevated TSH with normal T4 probably secure the right syndrome TSH and it may need to be repeated in about a month. -DVT prophylaxis patient is already on a IV heparin was this is discontinued patient will be switched to subcutaneous heparin, GI prophylaxis with Pepcid
[2019-12-24] MEDS: DEXAMETHASONE SOD PHOSPHATE 4 MG/ML 1 ML VIAL IV SCH ×3 (12:23→23:01)
[2019-12-24] MEDS: SODIUM CHLORIDE 0.9% 1,000 ML IV SCH ×2 (12:44→17:43)
--- NOTE | 2019-12-24 13:02 | US ---
EXAMINATION TYPE: US gallbladder DATE OF EXAM: 12/24/2019 COMPARISON: NONE CLINICAL HISTORY: elevated liver enzymes. hx lung mass EXAM MEASUREMENTS: Liver Length: 19.6 cm Gallbladder Wall: 0.3 cm CBD: 0.3 cm Right Kidney: 10.6 x 4.3 x 3.5 cm Pancreas: Tail obscured by overlying bowel gas Liver: Multiple focal lesions seen. Largest in right lobe= 6.1 x 5.1 x 4.9. Largest in left lobe = 3.6 x 3.8 x 2.1 cm Gallbladder: wnl Evidence for sonographic Lau's sign: neg CBD: wnl Right Kidney: No hydronephrosis or masses seen Limited views of the pancreas are unremarkable. The liver is prominent measuring 20 cm. There are multiple solid lesions within the liver consistent with metastases. The gallbladder is normal. The distal common bile duct measures 3 mm. The gallbladder wall measures 3 mm. There is no sonographic Lau's sign. The right kidney is normal. IMPRESSION: HEPATOMEGALY AND MULTIPLE HEPATIC LESIONS MOST CONSISTENT WITH METASTASES.
[2019-12-24] MEDS ORDERED: IOPAMIDOL CONTRAST (ORAL USE) VIAL PO PRN (14:02)
--- NOTE | 2019-12-24 14:02 | P.CONS ---
History of Present Illness - Reason for Consult Consult date: 12/24/19 Lung mass, brain mass - History of Present Illness The patient is a 59-year-old white male, with a known history of smoking and COPD. The patient presented to the hospital with decreased alertness and confusion. The patient is unable to provide any history, and this was obtained from other physician notes and EHR. On admission the patient also had A. fib with rapid ventricular response. He had a CTA, which showed no evidence of pulmonary embolus. He was however noted to have a large left hilar mass with marked compressive effect on the branch of the pulmonary artery, and left-sided bronchi. There was also evidence of mediastinal adenopathy. CT of the brain without contrast revealed evidence of bilateral brain metastasis. The patient was therefore admitted for further management. Review of records show that the patient was noted to have lung masses initially in 08/08. He subsequently had a PET scan in early 2017, which was read as nonspecific with findings indicating more likely an inflammatory etiology. He had follow-up scans, most recently in 06/10 that showed new left infrahilar lesion as well as mediastinal adenopathy. It doesn't appear that the patient has had a biopsy at this institution. It is not clear if he was compliant with follow-up. Review of Systems Not obtainable from patient. Obtain from EHR Constitutional: Reports weakness, Reports weight loss Eyes: denies blurred vision, denies pain Ears: deny: decreased hearing, ear discharge, earache, tinnitus Ears, nose, mouth and throat: Denies headache, Denies sore throat Cardiovascular: Reports dyspnea on exertion Respiratory: Reports dyspnea Gastrointestinal: Denies abdominal pain, Denies diarrhea, Denies nausea, Denies vomiting Genitourinary: Reports as per HPI Musculoskeletal: Reports muscle weakness Integumentary: Denies pruritus, Denies rash Neurological: Reports as per HPI Psychiatric: Reports confusion Endocrine: Reports fatigue, Reports weight change Hematologic/Lymphatic: Reports as per HPI Past Medical History Past Medical History: COPD History of Any Multi-Drug Resistant Organisms: None Reported Past Surgical History: Appendectomy, Orthopedic Surgery Additional Past Surgical History / Comment(s): lower back surgery, right BKA Past Anesthesia/Blood Transfusion Reactions: Unable to Obtain Past Psychological History: No Psychological Hx Reported Smoking Status: Current every day smoker Past Alcohol Use History: Occasional Past Drug Use History: Marijuana Medications and Allergies Home Medications Medication Instructions Recorded Confirmed Type Diazepam [Valium] 5 mg PO BID@0800,1200 PRN 08/12/17 12/23/19 History Albuterol Inhaler [Ventolin Hfa 1 puff INHALATION RT-Q4H PRN 12/23/19 12/23/19 History Inhaler] Albuterol Nebulized [Ventolin 2.5 mg INHALATION RT-Q4H 12/23/19 12/23/19 History Nebulized] Atorvastatin [Lipitor] 10 mg PO HS 12/23/19 12/23/19 History Budesonide/Formoterol Fumarate 2 puff INHALATION BID 12/23/19 12/23/19 History [Symbicort 160-4.5 Mcg Inhaler] Celecoxib [CeleBREX] 200 mg PO BID 12/23/19 12/23/19 History Diazepam [Valium] 10 mg PO HS PRN 12/23/19 12/23/19 History Gabapentin [Neurontin] 400 mg PO TID 12/23/19 12/23/19 History Lidocaine 4% Cream [Lmx 4] 1 applic TOPICAL TID PRN 12/23/19 12/23/19 History [place]-3 Fatty Acids/Fish Oil [Fish 1 cap PO DAILY 12/23/19 12/23/19 History Oil 1,000 mg Softgel] traZODone HCL [TraZODone HCl] 50 mg PO HS 12/23/19 12/23/19 History Allergies Allergy/AdvReac Type Severity Reaction Status Date / Time No Known Allergies Allergy Verified 12/23/19 23:16 Physical Exam Vitals: Vital Signs Temp Pulse Pulse Resp BP BP Pulse Ox 12/24/19 08:00 98.5 F 134 H 18 115/88 95 12/24/19 03:47 131 H 18 112/76 96 12/24/19 00:00 133 H 20 106/74 96 12/23/19 21:20 139 H 26 H 98/70 97 12/23/19 20:36 98.3 F 133 H 22 109/78 95 12/23/19 19:51 142 H 26 H 106/88 97 12/23/19 19:17 170 H 28 H 111/85 97 12/23/19 19:03 98 26 H 98/79 98 12/23/19 16:46 97.3 F L 186 H 26 H 102/88 98 Intake and Output 12/23/19 12/24/19 12/24/19 22:59 06:59 14:59 Intake Total 150.615 800 250 Balance 150.615 800 250 Intake: Intake, IV Titration 150.615 800 250 Amount Amiodarone 300 mg In 250 Dextrose 5% in Water 250 ml @ 0.5 MG/MIN 25 mls/hr IV .Q10H [facility] Rx#: [id number] Amiodarone 360 mg In 200 Dextrose 5% in Water 200 ml @ 1 MG/MIN 33.333 mls/ hr IV .Q6H [facility] Rx#: [id number] Heparin Sod,Pork in 0.45% 0.615 NaCl 25,000 unit In 0.45 % NaCl 1 250ml.bag @ 12 UNITS/KG/HR 7.38 mls/hr IV .Q24H [facility] Rx#: [id number] Sodium Chloride 0.9% 1, 150 600 000 ml @ 75 mls/hr IV . [id number] [facility] Rx#:[id number] Oral 0 Other: Weight 61.5 kg 72.5 kg 72.5 kg Patient awake. No acute distress. - Constitutional General appearance: no acute distress - EENT Eyes: EOMI, PERRLA ENT: hearing grossly normal, normal oropharynx - Neck Neck: no lymphadenopathy - Respiratory Respiratory: right: diminished - Cardiovascular Rhythm: regular Heart sounds: normal: S1, S2 - Gastrointestinal General gastrointestinal: hepatomegaly, soft - Integumentary Integumentary: normal - Neurologic Patient is confused. Does not appear to be able to comprehend even simple questions Neurologic: CNII-XII intact - Musculoskeletal Musculoskeletal: generalized weakness, strength equal bilaterally - Psychiatric Confused Results CBC & Chem 7: 12/23/19 16:52 12/23/19 16:52 Labs: Abnormal Lab Results - Last 24 Hours (Table) 12/23/19 12/23/19 12/23/19 Range/Units 16:52 16:52 16:52 WBC 17.9 H (3.8-10.6) k/uL Neutrophils # 14.8 H (1.3-7.7) k/uL Monocytes # 1.2 H (0-1.0) k/uL PT 14.7 H (9.0-12.0) sec INR 1.5 H (<1.2) D-Dimer 3.08 H (<0.60) mg/L FEU BUN 27 H (9-20) mg/dL Glucose 122 H (74-99) mg/dL POC Glucose (mg/dL) (75-99) mg/dL AST 541 H (17-59) U/L ALT 313 H (4-49) U/L Alkaline Phosphatase 141 H (38-126) U/L Albumin 3.3 L (3.5-5.0) g/dL TSH 4.910 H (0.465-4.680) mIU/L Urine Protein (Negative) Hyaline Casts (0-2) /lpf Urine Mucus (None) /hpf U Benzodiazepines Scrn (NotDetected) U Marijuana (THC) Screen (NotDetected) 12/23/19 12/23/19 12/23/19 Range/Units 17:00 19:00 19:00 WBC (3.8-10.6) k/uL Neutrophils # (1.3-7.7) k/uL Monocytes # (0-1.0) k/uL PT (9.0-12.0) sec INR (<1.2) D-Dimer (<0.60) mg/L FEU BUN (9-20) mg/dL Glucose (74-99) mg/dL POC Glucose (mg/dL) 142 H (75-99) mg/dL AST (17-59) U/L ALT (4-49) U/L Alkaline Phosphatase (38-126) U/L Albumin (3.5-5.0) g/dL TSH (0.465-4.680) mIU/L Urine Protein 1+ H (Negative) Hyaline Casts 3 H (0-2) /lpf Urine Mucus Rare H (None) /hpf U Benzodiazepines Scrn Detected H (NotDetected) U Marijuana (THC) Screen Detected H (NotDetected) Comments: PET scan report from [address] scan - chest: report reviewed CT Scan - head: report reviewed Assessment and Plan (1) Malignant neoplasm metastatic to brain Narrative/Plan: This appears to be the precipitating event leading to his acute symptoms at admission. Based on findings of the chest CT, the primary differential would be lung primary metastatic to the brain. Prior imaging findings as noted in the HPI. - Agree with IV steroids - The patient will need contrast imaging, preferably with MRI for better delineation of the brain lesions. Initial imaging was a CT without contrast - Patient will also need tissue diagnosis. Consult placed a pulmonary medicine. - Labs noted elevated liver enzymes, with likely hepatomegaly on exam. CT of the abdomen and pelvis will be ordered. If positive for other sites, those could potentially be targets for a tissue diagnosis also Current Visit: Yes Status: Acute Code(s): C79.31 - SECONDARY MALIGNANT NEOPLASM OF BRAIN SNOMED Code(s): 99107364 (2) Pulmonary mass Narrative/Plan: As above Current Visit: No Status: Acute Code(s): R91.8 - OTHER NONSPECIFIC ABNORMAL FINDING OF LUNG FIELD SNOMED Code(s): 932730030 Plan: case d/w IM
[2019-12-24] MEDS: IPRATROPIUM-ALBUTEROL 3 ML NEB INHALATION SCH ×2 (16:10→21:14)
[2019-12-24 16:47] LABS: African American GFR (CKD) >90 (>60 ml/min/1.73 sqM); Blood Urea Nitrogen 30 mg/dL (9-20); Non-African American GFR(CKD) >90 (>60 ml/min/1.73 sqM)
[2019-12-24] MEDS: GABAPENTIN 400 MG CAP PO SCH ×2 (17:40→21:28)
--- NOTE | 2019-12-24 19:01 | CT ---
EXAMINATION TYPE: CT abdomen pelvis w con DATE OF EXAM: 12/24/2019 COMPARISON: None HISTORY: Liver lesions, metastatic disease CT DLP: 831.6 mGycm Automated exposure control for dose reduction was used. CONTRAST: Performed with IV Contrast, patient injected with 100 mL of Isovue 300. There is opacification left hemithorax with large left pleural effusion and left hilar mass. There is small right pleural effusion. There is airspace consolidation and atelectasis right lower lobe. Ther e is bullous pulmonary emphysema. There is no pericardial effusion. Heart size is fairly normal. There is heterogeneity throughout the liver with multiple variable-sized masses that measure up to 5 cm consistent with metastatic disease. Bile ducts are not dilated. Gallbladder is not dilated. Spleen is intact. Stomach is intact. There is no evidence of pancreatic mass. Pancreatic duct is not dilate d. There is no adrenal mass. Kidneys show satisfactory contrast opacification. There is no hydronephrosi s. Ureters are not dilated. There is no retroperitoneal adenopathy. Abdominal aorta is atheromatous. Bladder distends smoothly with contrast. There is no inguinal hernia. There is minimal prostate calci fication. There is no sign of a bowel obstruction. There is no ascites. There is no mesenteric edema. There is multilevel posterior lumbar spine fusion surgery. There is laminectomy defect in the lower lumbar spine. There is no lumbar compression fracture. Bony pelvis is intact. IMPRESSION: Numerous hepatic lesions consistent with extensive metastatic disease. 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 Consolidation in the right lower lobe posteriorly with small right pleural effusio n. Liver lesions are essentially new compared to CT scan of 06/22/2019.
[2019-12-24] MEDS: AMIODARONE 200 MG TAB PO SCH ×2 (21:11→21:31)
[2019-12-24] MEDS: traZODone HCL 50 MG TAB PO SCH ×2 (21:12→21:28)
[2019-12-24] MEDS: SYMBICORT 160-4.5 MCG INHALER INHALATION SCH (21:14)
[2019-12-24] MEDS: ATORVASTATIN 10 MG TAB PO SCH (21:28)
[2019-12-25] MEDS: DEXAMETHASONE SOD PHOSPHATE 4 MG/ML 1 ML VIAL IV SCH ×2 (05:19→20:18)
[2019-12-25 07:42] LABS: African American GFR (CKD) >90 (>60 ml/min/1.73 sqM); Anion Gap 6 mmol/L; Blood Urea Nitrogen 30 mg/dL (9-20); Calcium 8.1 mg/dL (8.4-10.2); Carbon Dioxide 21 mmol/L (22-30); Chloride 111 mmol/L (98-107); Glucose 112 mg/dL (74-99); Non-African American GFR(CKD) >90 (>60 ml/min/1.73 sqM); Potassium 4.9 mmol/L (3.5-5.1); Sodium 138 mmol/L (137-145)
[2019-12-25 07:58] LABS: Basophils % (A) 0 %; Eosinophils % (A) 0 %; HCT 39.6 % (39.0-53.0); HGB 12.2 gm/dL (13.0-17.5); Hypochromasia Marked; Lymphocytes # (A) 0.7 k/uL (1.0-4.8); Lymphocytes % (A) 5 %; MCH 30.6 pg (25.0-35.0); MCHC 30.8 g/dL (31.0-37.0); MCV 99.5 fL (80.0-100.0); Macrocytosis Slight; Mean Platelet Volume 8.3; Monocytes # (A) 0.7 k/uL (0-1.0); Monocytes % (A) 5 %; Neutrophils # (A) 11.7 k/uL (1.3-7.7); Neutrophils % (A) 89 %; Platelet Count 336 k/uL (150-450); RBC 3.98 m/uL (4.30-5.90); RDW 14.9 % (11.5-15.5); WBC 13.2 k/uL (3.8-10.6)
[2019-12-25 08:09] LABS: Albumin 2.6 g/dL (3.5-5.0); Alkaline Phosphatase 162 U/L (38-126); Total Bilirubin 0.8 mg/dL (0.2-1.3); Total Protein 5.8 g/dL (6.3-8.2)
[2019-12-25] MEDS: METOPROLOL TARTRATE 25 MG TAB PO SCH (08:28)
[2019-12-25] MEDS: GABAPENTIN 400 MG CAP PO SCH ×3 (08:28→19:49)
[2019-12-25 08:29] LABS: ALT 1050 U/L (4-49); AST 1437 U/L (17-59)
[2019-12-25] MEDS: AMIODARONE 300 MG in DEXTROSE 5% IN WATER 250 ML IV SCH ×2 (08:33)
[2019-12-25] MEDS: SYMBICORT 160-4.5 MCG INHALER INHALATION SCH ×2 (08:40→19:48)
[2019-12-25] MEDS: IPRATROPIUM-ALBUTEROL 3 ML NEB INHALATION SCH ×4 (08:40→19:48)
[2019-12-25] MEDS ORDERED: ENOXAPARIN 40 MG/0.4 ML SYRINGE SQ SCH (09:00)
[2019-12-25] MEDS ORDERED: NON FORMULARY DRUG (Omega-3 Fatty Acids/Fish Oil [Fish Oil 1,000 Mg Softgel] 1 CAP) PO SCH (09:00)
[2019-12-25] MEDS: AMIODARONE 200 MG TAB PO SCH ×2 (09:43→19:49)
--- NOTE | 2019-12-25 10:01 | XR ---
EXAMINATION TYPE: XR orbit complete bilateral DATE OF EXAM: 12/25/2019 COMPARISON: CT brain dated 12/23/2019 HISTORY: MRI clearance. Possible orbital metallic foreign body. TECHNIQUE: 3 views of the orbits were obtained FINDINGS: No radiopaque orbital foreign body seen. Orbits are intact. Undulation of the nasal septum. No significant mucosal thickening of the sinuses radiographically. No acute fracture seen in the vis ualized osseous structures. IMPRESSION: No metallic radiopaque foreign body of the orbits seen on today's radiographs or the CT o f 12/23/2019.
--- NOTE | 2019-12-25 12:22 | P.PN ---
Subjective Progress Note Date: 12/25/19 This is a 59-year-old gentleman with history of right below the knee amputation, nicotine dependence, COPD, who initially presented to the emergency room because of altered mental status. Patient has been having back pain at home and has been taking significant amount of Valium over the past 6 days. CAT scan of the brain reveals a positive brain tumor, metastatic disease is suspected. CTA of the chest did not reveal any evidence of pulmonary embolism, it did show a large mass at the left pulmonary hilum. EKG on presentation here showed a supraventricular tachycardia with a heart rate of 190, subsequent EKG showed atrial flutter with rapid ventricular response. Blood pressure 112/70, heart rate 1:30, respirations 18, 96% on 2 L of oxygen. White blood cell count 17.9, hemoglobin 14, platelet count 433. Sodium 137, potassium 4.7, BUN 27 and creatinine 0.7. AST 541, ALT 313, alk phos 141. Troponin 0.012, TSH 4.9, T4 1 0.6, d-dimer 3.08, drug screen positive for benzos and marijuana. Arellano virus detected. At the time of examination today, patient is quite confused. 12/25/2019 Patient was seen and examined this morning, appears to be more alert today. Continues to be in atrial fibrillation this morning, heart rate earlier in the 90s, at the time of dictation, the heart rate has gone up to the 120 range. A CAT scan of the abdomen and pelvis was performed today, consistent with extensive metastatic disease, large left pulmonary mass with left hydrothorax. Consolidation in the right lower lobe posteriorly with small right pleural effusion liver lesions are new as compared with prior. Echocardiogram with Doppler study remains pending. White blood cell count 13.2, hemoglobin 12.2, platelet count 336. Sodium 138, potassium 4.9, BUN 30, creatinine 0.7. AST today 1437, ALT 1050, alk phos 162. Blood pressure this morning 106/78. We will increase the dose of metoprolol to 50 mg by mouth twice a day today for more optimal heart rate control. Objective - Vital Signs Vital signs: Vital Signs Temp 97.7 F 12/25/19 08:00 Pulse 126 H 12/25/19 12:00 Resp 18 12/25/19 12:00 BP 105/79 12/25/19 08:00 Pulse Ox 94 L 12/25/19 08:00 Intake & Output 12/24/19 12/25/19 12/25/19 18:59 06:59 18:59 Intake Total 250 1510 250 Balance 250 1510 250 Weight 72.5 kg 71.3 kg Intake: IV 10 Invasive Line 3 10 Intake, IV Titration 250 1500 250 Amount Amiodarone 300 mg In 250 Dextrose 5% in Water 250 ml @ 0.5 MG/MIN 25 mls/hr IV .Q10H LIN Rx#: [id number] Amiodarone 300 mg In 300 250 Dextrose 5% in Water 250 ml @ 0.5 MG/MIN 25 mls/hr IV .Q10H LIN Rx#: [id number] Sodium Chloride 0.9% 1, 1200 000 ml @ 100 mls/hr IV . Q10H LIN Rx#:[id number] Other: # Voids 1 1 - Exam PHYSICAL EXAMINATION: GENERAL: 59-year-old gentleman in no acute distress at the time of my examination HEENT: Head is atraumatic, normocephalic. Pupils equal, round. Sclera anicteric. Conjunctiva are clear. Mucous membranes of the mouth are moist. Neck is supple. There is no elevated jugular venous pressure. No carotid bruit is heard. HEART EXAMINATION: Heart S1, S2 irregularly irregular . CHEST EXAMINATION: Lungs are clear to auscultation and precussion. No chest wall tenderness is noted on palpation or with deep breathing. ABDOMEN: Soft, nontender. Bowel sounds are heard. No organomegaly noted. EXTREMITIES: 2+ peripheral pulse to the left foot, patient has a right BKA, with no evidence of peripheral edema and no calf tenderness noted. NEUROLOGIC [patient is awake, alert and confused. - Labs CBC & Chem 7: 12/25/19 06:29 12/25/19 06:29 Labs: Abnormal Lab Results - Last 24 Hours (Table) 12/24/19 12/25/19 12/25/19 Range/Units 16:19 06:29 06:29 WBC 13.2 H (3.8-10.6) k/uL RBC 3.98 L (4.30-5.90) m/uL Hgb 12.2 L (13.0-17.5) gm/dL MCHC 30.8 L (31.0-37.0) g/dL Neutrophils # 11.7 H (1.3-7.7) k/uL Lymphocytes # 0.7 L (1.0-4.8) k/uL Chloride 111 H (98-107) mmol/L Carbon Dioxide 21 L (22-30) mmol/L BUN 30 H 30 H (9-20) mg/dL Glucose 112 H (74-99) mg/dL Calcium 8.1 L (8.4-10.2) mg/dL AST 1437 H (17-59) U/L ALT 1050 H (4-49) U/L Alkaline Phosphatase 162 H (38-126) U/L Total Protein 5.8 L (6.3-8.2) g/dL Albumin 2.6 L (3.5-5.0) g/dL Assessment and Plan Plan: Assessment and plan #1 supraventricular tachycardia, atrial fib/ flutter with rapid ventricular response. Patient currently on PO amiodarone and beta jos. #2 nicotine dependence #3 COPD #4 evidence of brain metastases with large lung mass #5 elevated d-dimer, CT of the chest negative for pulmonary embolism. #6 elevated liver enzymes, worse today, evidence of numerous hepatic lesions on the CT of the abdomen Plan We'll increase the dose of beta jos to 50 mg one tablet by mouth twice a day. Review echocardiogram with Doppler study. At present the patient is not on anticoagulation, we will discuss this further. DNP note has been reviewed, I agree with a documented findings and plan of care. Patient was seen and examined.
--- NOTE | 2019-12-25 12:26 | P.PN ---
Subjective 59-year-old pleasant male with history of COPD continued nicotine dependence who came in because of altered mental status patient is alert oriented 0 patient is completely confused at this time. Patient is having low back pain because of which patient has been taking Valium the past 6 days patient took about 54 pills of Valium. Patient unable to provide any history to me although patient doesn't have any fever chills patient was tachycardic with elevated d-dimer because of his CT angios the chest was obtained which did not show any pulmonary embolism but did show a large mass in the left coronary hilum and patient had a Head CAT scan which showed metastatic disease with multiple metastatic lesions to the brain probably primary being lung cancer. Patient EKG showed super ventricular tachycardia followed by atrial flutter with rapid ventricular response patient was initially on diltiazem with because of the drop in blood pressure patient was switched to amiodarone patient is on IV heparin patient was is now on metoprolol cardiology evaluated the patient. Patient urine drug screen is positive for benzos and marijuana. Patient doesn't have any pneumonia. Patient upon exam is wheezing does have COPD. Patient looks very older than his stated age. 12/25/2019 Patient had a CAT scan of the abdomen which showed extensive metastatic disease with primary being lung cancer patient in the past never had any and wanted any workup MRI was also obtained. I tried to get more information from the patient patient today appears to understand what I'm saying but cannot give me any answers probably because of the significant metastatic disease to the brain. Apparently doesn't know anything about his diagnosis patient never told his . I did discuss with his regarding his overall goals of care. Patient is quite weak and probably will not tolerate any kind of chemotherapy the only choice we at this time is hospice. After discussion with the it appears like patient doesn't want anything to be done all he wants is hospice. is agreeable I cannot get much of the history from the patient and the only re asonable option medically as well as hospice because of which I'm consulting hospice at this time. Review of systems: Unable to obtain due to his clinical condition All inpatient medications were reviewed and appropriate changes in these medications as dictated in the interval history and assessment and plan. Objective - Vital Signs Vital signs: Vital Signs Temp 97.7 F 12/25/19 08:00 Pulse 126 H 12/25/19 12:00 Resp 18 12/25/19 12:00 BP 105/79 12/25/19 08:00 Pulse Ox 94 L 12/25/19 08:00 Intake & Output 12/24/19 12/25/19 12/25/19 18:59 06:59 18:59 Intake Total 250 1510 250 Balance 250 1510 250 Weight 72.5 kg 71.3 kg Intake: IV 10 Invasive Line 3 10 Intake, IV Titration 250 1500 250 Amount Amiodarone 300 mg In 250 Dextrose 5% in Water 250 ml @ 0.5 MG/MIN 25 mls/hr IV .Q10H LIN Rx#: [id number] Amiodarone 300 mg In 300 250 Dextrose 5% in Water 250 ml @ 0.5 MG/MIN 25 mls/hr IV .Q10H LIN Rx#: [id number] Sodium Chloride 0.9% 1, 1200 000 ml @ 100 mls/hr IV . Q10H LIN Rx#:[id number] Other: # Voids 1 1 - Exam PHYSICAL EXAMINATION: GENERAL: The patient is alert and oriented x0, not in any acute distress. Well developed, well nourished. He does have a gurgling sounds in the throat area HEENT: Pupils are round and equally reacting to light. EOMI. No scleral icterus. No conjunctival pallor. Normocephalic, atraumatic. No pharyngeal erythema. No thyromegaly. CARDIOVASCULAR: S1 and S2 present. No murmurs, rubs, or gallops. PULMONARY: Decreased air entry into bilateral lung ferreira [place] wheezing or crackles are appreciated some gurgly sounds throat area Wheezing or crackles are appreciated ABDOMEN: Soft, nontender, nondistended, normoactive bowel sounds. No palpable organomegaly. MUSCULOSKELETAL: No joint swelling or deformity. EXTREMITIES: No cyanosis, clubbing, or pedal edema. NEUROLOGICAL: Confused does not appear to have any focal deficits at this time but exam is limited because of limited to follow commands SKIN: No rashes. - Labs CBC & Chem 7: 12/25/19 06:29 12/25/19 06:29 Labs: Abnormal Lab Results - Last 24 Hours (Table) 12/24/19 12/25/19 12/25/19 Range/Units 16:19 06:29 06:29 WBC 13.2 H (3.8-10.6) k/uL RBC 3.98 L (4.30-5.90) m/uL Hgb 12.2 L (13.0-17.5) gm/dL MCHC 30.8 L (31.0-37.0) g/dL Neutrophils # 11.7 H (1.3-7.7) k/uL Lymphocytes # 0.7 L (1.0-4.8) k/uL Chloride 111 H (98-107) mmol/L Carbon Dioxide 21 L (22-30) mmol/L BUN 30 H 30 H (9-20) mg/dL Glucose 112 H (74-99) mg/dL Calcium 8.1 L (8.4-10.2) mg/dL AST 1437 H (17-59) U/L ALT 1050 H (4-49) U/L Alkaline Phosphatase 162 H (38-126) U/L Total Protein 5.8 L (6.3-8.2) g/dL Albumin 2.6 L (3.5-5.0) g/dL Assessment and Plan Plan: -Altered mental status, delirium secondary to toxic encephalopathy from Valium and metastatic disease to the brain may be contributing to his symptoms as well. Patient has lung cancer primary with metastatic disease hospice will be consulted because of above-mentioned reasons patient may have some aphasia as well from metastatic disease to the brain MRI is pending -Metastatic disease to brain probably primary being lung cancer. Oncology was consulted patient need biopsy of the lung lesion. Patient will probably need an MRI as well the patient was restarted on Decadron. Patient has metastases everywhere on the abdomen and pelvis scan. Patient has stage IV lung cancer. Hospice was consulted as mentioned above -Probably primary lung cancer: Patient declined any workup in the past -Atrial flutter with rapid and regular rate. Patient is presently on amiodarone and the metoprolol IV heparin was discontinued -Acute on chronic hypercapnic respiratory failure secondary to COPD exacerbation continue with Decadron inhalational treatments patient doesn't have any pneumonia or bronchitis will not require any antibiotics -We'll elevated liver enzymes probably secondary to metastatic disease which was evident on CAT scan and ultrasound -Elevated TSH with normal T4 probably sick euthyroid syndrome -DVT prophylaxis patient will be hospice because of that reason I'm not initiating and him on any DVT prophylaxis His prognosis is extremely poor in the past patient doesn't want anything to be done hospice was consulted.
[2019-12-25 12:57] LABS: Hepatitis B Core IgM Non-Reactive (Non-Reactive); Hepatitis B Surface Antigen Non-Reactive (Non-Reactive); Hepatitis C IgG Antibody Non-Reactive (Non-Reactive)
[2019-12-25 12:58] LABS: Hepatitis A Antibody IgM Non-Reactive (Non-Reactive)
--- NOTE | 2019-12-25 13:03 | MR ---
EXAMINATION TYPE: MR brain wo/w con DATE OF EXAM: 12/25/2019 COMPARISON: CT abdomen pelvis dated 12/24/2019 HISTORY: Evaluate for metastatic brain lesions. A fast brain protocol was utilized due to patient mot ion and condition. TECHNIQUE: Multiplanar, multisequence images of the brain and brainstem is performed without and with IV contras t, utilizing 7 mL intravenous Gadavist . Exam is limited secondary to patient motion. FINDINGS: Diffusion weighted images demonstrates 9 intradural, intra-axial lesions demonstrating sena pheral restricted diffusion. These masses are are mixed signal intensity on T2-weighted imaging and predominantly hyperintense on FLAIR imaging with minimal central necrosis. Faint rim enhancement is s een of these masses. Only very minimal surrounding vasogenic edema. Therefore these are most likely o n the basis of intracranial metastasis rather than intracranial abscess. One of the largest masses is a left cerebellar hemisphere mass measuring 3.0 x 2.5 cm on postcontrast axial T1 image 8. Another left cerebral hemisphere mass with mass effect on the fourth ventricle nanci sures 2.1 cm on image 11. A left periventricular mass on image 17 measures 1.6 cm. A right parietal m ass on image 20 measures 1.8 x 2.2 cm. A right occipital mass on image 23 measures 1.6 x 1.7 cm. A le ft posterior frontal mass on image 21 measures 1.9 x 1.8 cm. The more cranial aspect of this mass on image 22 measures 2.1 x 1.5 cm. Another left frontal mass on image 24 measures 1.4 cm. A right occipi arianna mass measures 2.9 cm on image 24. The mass seen in the left thalamus on diffusion-weighted imagin g does not demonstrate abnormal enhancement on postcontrast imaging and is likely not seen given its small size on postcontrast imaging. 4 mm mass at the left frontoparietal junction is marked on image 21. Mild burden nonspecific white matter changes seen in the periventricular white matter demonstrated as T2/FLAIR hyperintensity. Scant mucosal thickening in the inferior maxillary sinuses. Remaining paranasal sinuses and mastoid a ir cells are well aerated. Prominent amount of perineural fluid surrounding the optic nerves. The ventricular system and cisternal spaces are symmetrically prominent compatible with age-related v olume loss. No midline shift. IMPRESSION: 1. 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 Only minimal surrounding vasogenic edema. No appreciable midline shift. 2. Pronounced amount of perineural fluid surrounding the optic nerves that can be seen in increased i ntracranial pressure. Correlate with ophthalmologic exam to exclude papilledema.
--- NOTE | 2019-12-25 13:20 | P.CNPUL ---
History of Present Illness Consult date: 12/25/19 Reason for consult: other Chief complaint: Altered mental status History of present illness: 59-year-old white male patient who [facility] [place], with a history of left knee amputation secondary to shrapnel injury during combat in 1979, previous history of smoking for 37 years of the proximal a pack a day, COPD with FEV1 of 39% of predicted, previous episodes of pneumonia, and a known history of a lung mass the right lower lobe since 2018, which was being followed by Dr. Dr. Soto in the outpatient setting. Initial PET scans in 2018 showed more of a inflammatory focus, went follow-up CT chest also showed lesions in the left lung, worsening changes in the right side, and previously patient has refused any workup or bronchoscopy with biopsies for diagnosis of the bilateral lung masses. Patient was last seen in the office on 12/14/2019 for COPD exacerbation and was treated with the antibiotics and steroids. Patient has been offered biopsy of the lung mass previously by he had again refused interventions and treatment. On 12/23/2019 patient was brought into the emergency department per EMS for altered mental status, and possibility of a Valium overdose. According to the family patient reportedly took 47 Valiums in the last 6 days prior to hospitalization. His mentation has been altered for 6 days prior and was getting progressively worse to the point that the patient was barely responsive. No reported history of difficulty breathing, no fever or cough, no complaints of chest pain. Patient is a poor historian, most of the history was obtained from the chart, no complaint of abdominal pain, nausea vomiting or diarrhea. Patient did have tachycardia, SVT on the way to the hospital with a heart rate in the 200s, given IV fluids on the way to the hospital. Brain CT showed evidence of low density mass in the left cerebellar hemisphere was slightly effacement of the fourth ventricle suggestive of brain metastases. CTA chest showed no evidence of pulmonary embolism, but it did show narrowing of multiple branches of the left pulmonary artery consistent with encasement with tumor and this was a significant change compared to prior CT chest. There was airspace consolidation and atelectasis in the right lower lobe posteriorly which has progressed compared to last exam, background of bullous emphysema, and a very large mass at the left pulmonary hilum which has increased significantly compared to old exam. CT of abdomen and pelvis showed numerous hepatic lesions consistent with extensive metastatic disease. Blood work showed white blood cell, 17.9, myoglobin of 14, INR was 1.5, d-dimer was 3.08, electrolytes are within normal limits, BUN was 27 creatinine was 0.7, AST was 541, ALT was 313, alkaline phosphatase was 141, coronary virus PCR was not detected, urine drug screen was positive for benzodiazepines and marijuana. During our evaluation patient is awake, although there is to be weak, he does have garbled speech, but no unilateral weakness, he is answering some questions appropriately, does not appear to be in any acute respiratory distress, he is currently on 4 L of oxygen with pulse ox of 94%, he is afebrile, still remains tachycardic, remains on amiodarone drip for rate control, he was started on Decadron, he is receiving gentle IV hydration with 0.9 normal saline at a rate of 75 ML per hour. Review of Systems All systems: negative Constitutional: Denies chills, Denies fever Eyes: denies blurred vision, denies pain Ears, nose, mouth and throat: Denies headache, Denies sore throat Cardiovascular: Denies chest pain, Denies shortness of breath Respiratory: Denies cough Gastrointestinal: Denies abdominal pain, Denies diarrhea, Denies nausea, Denies vomiting Musculoskeletal: Denies myalgias Integumentary: Denies pruritus, Denies rash Neurological: Reports change in mentation, Reports confusion, Reports weakness, Denies numbness Psychiatric: Denies anxiety, Denies depression Endocrine: Denies fatigue, Denies weight change Past Medical History Past Medical History: COPD History of Any Multi-Drug Resistant Organisms: None Reported Past Surgical History: Appendectomy, Orthopedic Surgery Additional Past Surgical History / Comment(s): lower back surgery, right BKA Past Anesthesia/Blood Transfusion Reactions: Unable to Obtain Past Psychological History: No Psychological Hx Reported Smoking Status: Current every day smoker Past Alcohol Use History: Occasional Past Drug Use History: Marijuana Medications and Allergies Home Medications Medication Instructions Recorded Confirmed Type Diazepam [Valium] 5 mg PO BID@0800,1200 PRN 08/12/17 12/23/19 History Albuterol Inhaler [Ventolin Hfa 1 puff INHALATION RT-Q4H PRN 12/23/19 12/23/19 History Inhaler] Albuterol Nebulized [Ventolin 2.5 mg INHALATION RT-Q4H 12/23/19 12/23/19 History Nebulized] Atorvastatin [Lipitor] 10 mg PO HS 12/23/19 12/23/19 History Budesonide/Formoterol Fumarate 2 puff INHALATION BID 12/23/19 12/23/19 History [Symbicort 160-4.5 Mcg Inhaler] Celecoxib [CeleBREX] 200 mg PO BID 12/23/19 12/23/19 History Diazepam [Valium] 10 mg PO HS PRN 12/23/19 12/23/19 History Gabapentin [Neurontin] 400 mg PO TID 12/23/19 12/23/19 History Lidocaine 4% Cream [Lmx 4] 1 applic TOPICAL TID PRN 12/23/19 12/23/19 History [place]-3 Fatty Acids/Fish Oil [Fish 1 cap PO DAILY 12/23/19 12/23/19 History Oil 1,000 mg Softgel] traZODone HCL [TraZODone HCl] 50 mg PO HS 12/23/19 12/23/19 History Allergies Allergy/AdvReac Type Severity Reaction Status Date / Time No Known Allergies Allergy Verified 12/23/19 23:16 Physical Exam Vitals: Vital Signs Temp Pulse Pulse Resp BP Pulse Ox 12/25/19 12:00 126 H 18 12/25/19 11:45 100 12/25/19 11:34 98 12/25/19 08:47 104 H 12/25/19 08:40 100 12/25/19 08:00 97.7 F 126 H 18 105/79 94 L 12/25/19 04:00 97.0 F L 123 H 18 104/81 96 12/24/19 23:16 125 H 16 12/24/19 23:14 96.9 F L 125 H 16 99/74 98 12/24/19 20:00 97.6 F 126 H 16 142/60 94 L 12/24/19 16:23 124 H 12/24/19 16:11 128 H 12/24/19 16:10 91 L 12/24/19 16:00 97.7 F 127 H 18 119/73 85 L Intake and Output 12/24/19 12/25/19 12/25/19 22:59 06:59 14:59 Intake Total 1510 250 Balance 1510 250 Intake: IV 10 Invasive Line 3 10 Intake, IV Titration 1500 250 Amount Amiodarone 300 mg In 300 250 Dextrose 5% in Water 250 ml @ 0.5 MG/MIN 25 mls/hr IV .Q10H LIN Rx#: [id number] Sodium Chloride 0.9% 1, 1200 000 ml @ 100 mls/hr IV . Q10H LIN Rx#:[id number] Other: # Voids 1 1 Weight 71.3 kg GENERAL EXAM: Alert, somewhat confused, but answering some questions appropria robi, 51-year-old white male, thin, appears chronically ill, but no acute distress noted comfortable in no apparent distress. Somewhat of garbled speech HEAD: Normocephalic/atraumatic. EYES: Normal reaction of pupils, equal size. Conjunctiva pink, sclera white. NOSE: Clear with pink turbinates. THROAT: No erythema or exudates. NECK: No masses, no JVD, no thyroid enlargement, no adenopathy. CHEST: No chest wall deformity. Symmetrical expansion. LUNGS: Equal air entry with no crackles, wheeze, rhonchi or dullness. CVS: irregular rate and rhythm, normal S1 and S2, no gallops, no murmurs, no r ubs ABDOMEN: Soft, nontender. No hepatosplenomegaly, normal bowel sounds, no guarding or rigidity. EXTREMITIES: No clubbing, no edema, no cyanosis, 2+ pulses and upper and lower extremities. MUSCULOSKELETAL: Muscle strength and tone normal. SPINE: No scoliosis or deformity SKIN: No rashes CENTRAL NERVOUS SYSTEM: Alert and oriented -1. No focal deficits, tone is normal in all 4 extremities. PSYCHIATRIC: Alert and oriented -1. Results - Laboratory Findings CBC and BMP: 12/25/19 06:29 12/25/19 06:29 PT/INR, D-dimer PT 14.7 sec (9.0-12.0) H 12/23/19 16:52 INR 1.5 (<1.2) H 12/23/19 16:52 D-Dimer 3.08 mg/L FEU (<0.60) H 12/23/19 16:52 Abnormal lab findings: Abnormal Labs 12/23/19 12/23/19 12/23/19 16:52 16:52 16:52 WBC 17.9 H RBC Hgb MCHC Neutrophils # 14.8 H Lymphocytes # Monocytes # 1.2 H PT 14.7 H INR 1.5 H D-Dimer 3.08 H Chloride Carbon Dioxide BUN 27 H Glucose 122 H POC Glucose (mg/dL) Calcium AST 541 H ALT 313 H Alkaline Phosphatase 141 H Total Protein Albumin 3.3 L TSH 4.910 H Urine Protein Hyaline Casts Urine Mucus U Benzodiazepines Scrn U Marijuana (THC) Screen 12/23/19 12/23/19 12/23/19 17:00 19:00 19:00 WBC RBC Hgb MCHC Neutrophils # Lymphocytes # Monocytes # PT INR D-Dimer Chloride Carbon Dioxide BUN Glucose POC Glucose (mg/dL) 142 H Calcium AST ALT Alkaline Phosphatase Total Protein Albumin TSH Urine Protein 1+ H Hyaline Casts 3 H Urine Mucus Rare H U Benzodiazepines Scrn Detected H U Marijuana (THC) Screen Detected H 12/24/19 12/25/19 12/25/19 16:19 06:29 06:29 WBC 13.2 H RBC 3.98 L Hgb 12.2 L MCHC 30.8 L Neutrophils # 11.7 H Lymphocytes # 0.7 L Monocytes # PT INR D-Dimer Chloride 111 H Carbon Dioxide 21 L BUN 30 H 30 H Glucose 112 H POC Glucose (mg/dL) Calcium 8.1 L AST 1437 H ALT 1050 H Alkaline Phosphatase 162 H Total Protein 5.8 L Albumin 2.6 L TSH Urine Protein Hyaline Casts Urine Mucus U Benzodiazepines Scrn U Marijuana (THC) Screen - Diagnostic Findings Chest x-ray: report reviewed, image reviewed CT scan - chest: report reviewed, image reviewed Additional studies: CT brain, EKG Assessment and Plan Plan: Assessment: #1. Enlarging known right lower lobe mass and progression of the left hilar mass causing complete occlusion of the left upper lobe pulmonary artery, post obstructive changes with left hemithorax/opacification with pleural fluid and pulmonary mass. There is known history of right lower lobe mass since 2018 and left hilar mass since 2019, and patient had previously declined any workup. Brain CT showed metastatic lesions, this is presumably metastatic lung cancer #2. Stage III COPD, FEV1 of 39% of predicted #3. Metastatic lung cancer with metastasis to the brain and liver #4. A. fib/A flutter with RVR, remains on amiodarone drip for rate control #5. Elevated d-dimer, CTA is negative for pulmonary embolism #6. Elevated liver transaminases likely related to liver metastasis #7. Altered mental status likely related to brain metastasis #8. Possible Valium overdose #9. Current every day smoker #10. 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 Continue hypoxemic respiratory failure related to severe COPD Plan: Continue current medical treatment, IV Decadron, breathing treatments, IV hydration, patient remains on amiodarone for rate control. he is well-known to our service, he has been following with Dr. Soto since 2018 for history of COPD and known history of bilateral lung pulmonary masses that are presumed to be malignant unless otherwise known. He had previously on multiple occasions declined any workup, it appears that his cancer has progressed and is now metastatic at this point, from pulmonary perspective he recommends hospice consultation per patient's previously expressed wishes, for now continue supportive treatment. I performed a history & physical examination of the patient and discussed their management with my nurse practitioner, Zohreh Claire. I reviewed the nurse practitioner's note and agree with the documented findings and plan of care. Lung sounds are positive for diminished breath sounds throughout the lung ferreira. The findings and the impression was discussed with the patient. I attest to the documentation by the nurse practitioner. Time with Patient: Greater than 30
--- NOTE | 2019-12-25 14:19 | P.PN ---
Subjective Progress Note Date: 12/25/19 Principal diagnosis: AMS In f/u pt speech is slurred, not sure how much of the conversation regarding lung, liver and brain lesions he understands. Denied nausea, need to go to the bathroom or pain. Objective - Vital Signs Vital signs: Vital Signs Temp 97.7 F 12/25/19 08:00 Pulse 126 H 12/25/19 12:00 Resp 18 12/25/19 12:00 BP 105/79 12/25/19 08:00 Pulse Ox 94 L 12/25/19 08:00 Intake & Output 12/24/19 12/25/19 12/25/19 18:59 06:59 18:59 Intake Total 250 1510 250 Balance 250 1510 250 Weight 72.5 kg 71.3 kg Intake: IV 10 Invasive Line 3 10 Intake, IV Titration 250 1500 250 Amount Amiodarone 300 mg In 250 Dextrose 5% in Water 250 ml @ 0.5 MG/MIN 25 mls/hr IV .Q10H LIN Rx#: [id number] Amiodarone 300 mg In 300 250 Dextrose 5% in Water 250 ml @ 0.5 MG/MIN 25 mls/hr IV .Q10H LIN Rx#: [id number] Sodium Chloride 0.9% 1, 1200 000 ml @ 100 mls/hr IV . Q10H LIN Rx#:[id number] Other: # Voids 1 1 - Constitutional General appearance: Present: cooperative, no acute distress, thin - EENT Eyes: Present: EOMI, poor dentition ENT: Present: hearing grossly normal - Respiratory Respiratory: bilateral: diminished - Cardiovascular Rhythm: regular Heart sounds: normal: S1, S2 Abnormal Heart Sounds: Absent: systolic murmur, diastolic murmur, rub, S3 Gallop, S4 Gallop, click, other - Peripheral edema leg Peripheral Edema: bilateral: None - Gastrointestinal General gastrointestinal: Present: normal bowel sounds, soft - Integumentary Integumentary: Present: jaundiced - Musculoskeletal Musculoskeletal: Present: generalized weakness - Psychiatric Psychiatric: Absent: appropriate affect, intact judgment & insight - Labs CBC & Chem 7: 12/25/19 06:29 12/25/19 06:29 Labs: Abnormal Lab Results - Last 24 Hours (Table) 12/24/19 12/25/19 12/25/19 Range/Units 16:19 06:29 06:29 WBC 13.2 H (3.8-10.6) k/uL RBC 3.98 L (4.30-5.90) m/uL Hgb 12.2 L (13.0-17.5) gm/dL MCHC 30.8 L (31.0-37.0) g/dL Neutrophils # 11.7 H (1.3-7.7) k/uL Lymphocytes # 0.7 L (1.0-4.8) k/uL Chloride 111 H (98-107) mmol/L Carbon Dioxide 21 L (22-30) mmol/L BUN 30 H 30 H (9-20) mg/dL Glucose 112 H (74-99) mg/dL Calcium 8.1 L (8.4-10.2) mg/dL AST 1437 H (17-59) U/L ALT 1050 H (4-49) U/L Alkaline Phosphatase 162 H (38-126) U/L Total Protein 5.8 L (6.3-8.2) g/dL Albumin 2.6 L (3.5-5.0) g/dL - Imaging and Cardiology MRI - head: report reviewed (mult intraparenchymal brain mets) Assessment and Plan (1) Brain lesion Current Visit: Yes Status: Acute Priority: High Code(s): G93.9 - DISORDER OF BRAIN, UNSPECIFIED SNOMED Code(s): 858671644 (2) Liver lesion Current Visit: Yes Status: Acute Priority: High Code(s): K76.9 - LIVER DISEASE, UNSPECIFIED SNOMED Code(s): 467514716 (3) Pulmonary mass Current Visit: Yes Status: Chronic Priority: High Code(s): R91.8 - OTHER NONSPECIFIC ABNORMAL FINDING OF LUNG FIELD SNOMED Code(s): 538817182 Plan: Clinical picture most consistent with metastatic lung cancer. No previous biopsy. Reviewed case with Pulmonary DNP regarding liver versus lung biopsy. Patient is well-known to pulmonary. Pt has expressed previously his wishes to them and is not interest in pursuing diagnosis or treatment for cancer. Briefly discussed with Internal Medicine. I understand they will be contacting patient's for discussion. Reviewed MRI brain results-do not think pt understood. Palliative brain radiation would be something to consider as pt is symptomatic. Rad Onc consulted. Steroid dose increased. PPI for prevention of steroid induced gastritis. Oncology will remain available if there are any questions or concerns from the patient or the family or if we can be of any assistance.
[2019-12-25] MEDS: ATORVASTATIN 10 MG TAB PO SCH (19:48)
[2019-12-25] MEDS: PANTOPRAZOLE 40 MG/10 ML VIAL IVP SCH (19:49)
[2019-12-25] MEDS: METOPROLOL TARTRATE 50 MG TAB PO SCH (19:49)
[2019-12-25] MEDS: traZODone HCL 50 MG TAB PO SCH (19:49)
[2019-12-25] MEDS: DEXAMETHASONE SOD PHOSPHATE 10 MG/ML 1 ML VIAL IV SCH ×2 (19:51→23:00)
[2019-12-25] MEDS: SODIUM CHLORIDE 0.9% 1,000 ML IV SCH (20:17)
[2019-12-26] MEDS ORDERED: MORPHINE SULFATE 4 MG/ML SYRINGE IVP PRN (00:07)
[2019-12-26] MEDS ORDERED: SCOPOLAMINE 1.5MG/72HR PATCH TRANSDERM SCH (00:30)
[2019-12-26] MEDS: ATROPINE OPHTH SOLN 1% 5ML BTL SUBLINGUAL PRN ×2 (00:40→04:58)
[2019-12-26] MEDS: SODIUM CHLORIDE 0.9% 1,000 ML IV SCH ×2 (02:54→13:11)
[2019-12-26] MEDS: DEXAMETHASONE SOD PHOSPHATE 10 MG/ML 1 ML VIAL IV SCH ×2 (04:58→13:11)
[2019-12-26] MEDS: IPRATROPIUM-ALBUTEROL 3 ML NEB INHALATION SCH ×3 (08:41→15:25)
[2019-12-26] MEDS: SYMBICORT 160-4.5 MCG INHALER INHALATION SCH (08:41)
--- NOTE | 2019-12-26 09:15 | P.CONS ---
History of Present Illness - Reason for Consult Consult date: 12/25/19 brain metastases Requesting physician: Akhil Moreno - Chief Complaint altered mental status - History of Present Illness The patient is a 59-year-old male with a history of COPD and tobacco abuse. He presents with altered mental status, and findings of large left lung lesion, liver and brain metastasis. During my visit with the patient, there is no family at bedside. The patient was significantly altered and unable to answer any questions. According to the medical chart, the patient has had altered mental status for 6 days prior to coming to the ER on 12/22. Despite the initiation of Decadron, this has not significantly improved. Initial CT scan of the brain showed 3 low-density masses including 2 in the left cerebellum and one in the right posterior parietal region with mild vasogenic edema. CTA of the chest showed complete consolidation of the left lung secondary to a 13 x 8 cm mass involving the left hilum. The patient was found to have markedly abnormal LFTs and his CT of the abdomen and pelvis performed on December 23 showed multiple liver metastasis up to 5 cm in size. On reviewing the chart, there was some evidence of a developing left hilar lesion back in May. The patient appears to have not requested further workup, and according to the chart does not want any aggressive treatments for his cancer. Review of Systems ROS unobtainable: due to mental status Past Medical History Past Medical History: COPD History of Any Multi-Drug Resistant Organisms: None Reported Past Surgical History: Appendectomy, Orthopedic Surgery Additional Past Surgical History / Comment(s): lower back surgery, right BKA Past Anesthesia/Blood Transfusion Reactions: Unable to Obtain Past Psychological History: No Psychological Hx Reported Smoking Status: Current every day smoker Past Alcohol Use History: Occasional Past Drug Use History: Marijuana Medications and Allergies Home Medications Medication Instructions Recorded Confirmed Type Diazepam [Valium] 5 mg PO BID@0800,1200 PRN 08/12/17 12/23/19 History Albuterol Inhaler [Ventolin Hfa 1 puff INHALATION RT-Q4H PRN 12/23/19 12/23/19 History Inhaler] Albuterol Nebulized [Ventolin 2.5 mg INHALATION RT-Q4H 12/23/19 12/23/19 History Nebulized] Atorvastatin [Lipitor] 10 mg PO HS 12/23/19 12/23/19 History Budesonide/Formoterol Fumarate 2 puff INHALATION BID 12/23/19 12/23/19 History [Symbicort 160-4.5 Mcg Inhaler] Celecoxib [CeleBREX] 200 mg PO BID 12/23/19 12/23/19 History Diazepam [Valium] 10 mg PO HS PRN 12/23/19 12/23/19 History Gabapentin [Neurontin] 400 mg PO TID 12/23/19 12/23/19 History Lidocaine 4% Cream [Lmx 4] 1 applic TOPICAL TID PRN 12/23/19 12/23/19 History [place]-3 Fatty Acids/Fish Oil [Fish 1 cap PO DAILY 12/23/19 12/23/19 History Oil 1,000 mg Softgel] traZODone HCL [TraZODone HCl] 50 mg PO HS 12/23/19 12/23/19 History Allergies Allergy/AdvReac Type Severity Reaction Status Date / Time No Known Allergies Allergy Verified 12/23/19 23:16 Physical Exam Vitals: Vital Signs Temp Pulse Pulse Resp BP Pulse Ox 12/26/19 08:53 121 H 12/26/19 08:42 119 H 12/26/19 03:40 124 H 17 12/26/19 03:38 97.7 F 124 H 17 95/67 96 12/25/19 23:50 121 H 16 12/25/19 23:36 97.3 F L 121 H 16 96/71 96 12/25/19 20:00 97.7 F 130 H 18 109/78 95 12/25/19 16:16 125 H 12/25/19 16:06 92 L 12/25/19 16:03 121 H 12/25/19 16:00 128 H 18 12/25/19 12:00 97.8 F 128 H 18 103/75 90 L 12/25/19 11:45 100 12/25/19 11:34 98 Intake and Output 12/25/19 12/26/19 12/26/19 22:59 06:59 14:59 Intake Total 10 20 Output Total 300 Balance 10 -280 Intake: IV 10 10 Invasive Line 5 10 10 Oral 10 Output: Urine 300 Other: Voiding Method Indwelling Catheter # Voids 1 1 Weight 72 kg - Constitutional General appearance: mild distress - EENT Eyes: PERRLA ENT: hearing grossly normal - Neck Neck: no lymphadenopathy - Respiratory Respiratory: right: rales, left: diminished - Cardiovascular Rhythm: regular - Gastrointestinal General gastrointestinal: no distended - Integumentary Integumentary: pale, no rash - Psychiatric Psychiatric: no A&O x's 3 Results CBC & Chem 7: 12/25/19 06:29 12/25/19 06:29 CT scan - chest: report reviewed, image reviewed CT scan - pelvis: report reviewed, image reviewed Assessment and Plan Plan: The patient is a 59-year-old male with a history of COPD and tobacco abuse. He presents with altered mental status, and findings of large left lung lesion, liver and brain metastasis. 1. The patient presents with severely altered mental status. He is unable to follow commands or or answer any questions on examination. This did not improve despite the initiation of Decadron. Hospice has been appropriately consulted. Following discussions with the family had by oncology and the primary service, it was determined the patient's wishes were to not have treatment and he will therefore be discharged to hospice care. Time with Patient: Less than 30
[2019-12-26] MEDS: METOPROLOL TARTRATE 50 MG TAB PO SCH (09:19)
[2019-12-26] MEDS: GABAPENTIN 400 MG CAP PO SCH (09:19)
[2019-12-26] MEDS: AMIODARONE 200 MG TAB PO SCH (09:19)
[2019-12-26 09:22] VITALS: BP 157/72; TEMP 98.1
[2019-12-26] MEDS: PANTOPRAZOLE 40 MG/10 ML VIAL IVP SCH (09:25)
--- NOTE | 2019-12-26 10:00 | ECHOF ---
Referral Reason:aflutter MEASUREMENTS -------- HEIGHT: 188.0 cm WEIGHT: 71.2 kg BP: 104/81 RVIDd: 2.9 cm (< 3.3) IVSd: 1.1 cm (0.6 - 1.1) LVIDd: 3.7 cm (3.9 - 5.3) LVPWd: 1.1 cm (0.6 - 1.1) IVSs: 1.5 cm LVIDs: 3.3 cm LVPWs: 1.4 cm LA Diam: 2.9 cm (2.7 - 3.8) Ao Diam: 4.0 cm (2.0 - 3.7) AV Cusp: 2.6 cm (1.5 - 2.6) MV EXCURSION: 23.414 mm (> 18.000) MV EF SLOPE: 243 mm/s (70 - 150) EPSS: 0.4 cm RAP: 5.00 mmHg RVSP: 27.81 mmHg FINDINGS -------- The rhythm appears to be atrial flutter. This was a technically adequate study. The left ventricular size is normal. There is borderline concentric left ventricular hypertrophy. Overall left ventricular systolic function is moderately impaired with, an EF between 35 - 40 %. The right ventricle is normal in size. The left atrial size is normal. The right atrium is normal in size. Patent foramen ovale present with right to left shunt. There is mild aortic valve sclerosis. Elongated and redundant anterior mitral leaflet. Elongated and redundant posterior mitral leaflet. Mild tricuspid regurgitation present. Right ventricular systolic pressure is normal at < 35 mmHg. The pulmonic valve was not well visualized. The aortic root is dilated measuring 4.0cm. Normal inferior vena cava with normal inspiratory collapse consistent with estimated right atrial pre ssure of 5 mmHg. There is no pericardial effusion. CONCLUSIONS -------- 1. The rhythm appears to be atrial flutter. 2. This was a technically adequate study. 3. The left ventricular size is normal. 4. There is borderline concentric left ventricular hypertrophy. 5. Overall left ventricular systolic function is moderately impaired with, an EF between 35 - 40 %. 6. The right ventricle is normal in size. 7. The left atrial size is normal. 8. The right atrium is normal in size. 9. Patent foramen ovale present with right to left shunt. 10. There is mild aortic valve sclerosis. 11. Elongated and redundant anterior mitral leaflet. 12. Elongated and redundant posterior mitral leaflet. 13. Mild tricuspid regurgitation present. 14. Right ventricular systolic pressure is normal at < 35 mmHg. 15. The pulmonic valve was not well visualized. 16. The aortic root is dilated measuring 4.0cm. 17. Normal inferior vena cava with normal inspiratory collapse consistent with estimated right atrial pressure of 5 mmHg. 18. There is no pericardial effusion. NURSING CLINICAL DIRECTOR: Alexandrea Sal RDCS
--- NOTE | 2019-12-26 12:18 | P.PN ---
Subjective Progress Note Date: 12/26/19 Principal diagnosis: Altered mental status 59-year-old white male patient who [facility] [place], with a history of left knee amputation secondary to shrapnel injury during combat in 1979, previous history of smoking for 37 years of the proximal a pack a day, COPD with FEV1 of 39% of predicted, previous episodes of pneumonia, and a known history of a lung mass the right lower lobe since 2018, which was being followed by Dr. Dr. Soto in the outpatient setting. Initial PET scans in 2018 showed more of a inflammatory focus, went follow-up CT chest also showed lesions in the left lung, worsening changes in the right side, and previously patient has refused any workup or bronchoscopy with biopsies for diagnosis of the bilateral lung masses. Patient was last seen in the office on 12/14/2019 for COPD exacerbation and was treated with the antibiotics and steroids. Patient has been offered biopsy of the lung mass previously by he had again refused interventions and treatment. On 12/23/2019 patient was brought into the emergency department per EMS for altered mental status, and possibility of a Valium overdose. According to the family patient reportedly took 47 Valiums in the last 6 days prior to hospitalization. His mentation has been altered for 6 days prior and was getting progressively worse to the point that the patient was barely responsive. No reported history of difficulty breathing, no fever or cough, no complaints of chest pain. Patient is a poor historian, most of the history was obtained from the chart, no complaint of abdominal pain, nausea vomiting or diarrhea. Patient did have tachycardia, SVT on the way to the hospital with a heart rate in the 200s, given IV fluids on the way to the hospital. Brain CT showed evidence of low density mass in the left cerebellar hemisphere was slightly effacement of the fourth ventricle suggestive of brain metastases. CTA chest showed no evidence of pulmonary embolism, but it did show narrowing of multiple branches of the left pulmonary artery consistent with enc asement with tumor and this was a significant change compared to prior CT chest. There was airspace consolidation and atelectasis in the right lower lobe posteriorly which has progressed compared to last exam, background of bullous emphysema, and a very large mass at the left pulmonary hilum which has increased significantly compared to old exam. CT of abdomen and pelvis showed numerous hepatic lesions consistent with extensive metastatic disease. Blood work showed white blood cell, 17.9, myoglobin of 14, INR was 1.5, d-dimer was 3.08, electrolytes are within normal limits, BUN was 27 creatinine was 0.7, AST was 541, ALT was 313, alkaline phosphatase was 141, coronary virus PCR was not de tected, urine drug screen was positive for benzodiazepines and marijuana. During our evaluation patient is awake, although there is to be weak, he does have garbled speech, but no unilateral weakness, he is answering some questions appropriately, does not appear to be in any acute respiratory distress, he is currently on 4 L of oxygen with pulse ox of 94%, he is afebrile, still remains tachycardic, remains on amiodarone drip for rate control, he was started on Decadron, he is receiving gentle IV hydration with 0.9 normal saline at a rate of 75 ML per hour. On 12/26/2019 patient seen in follow-up on selective care unit, quite lethargic on today's exam, but appears to be in no acute distress, he is currently on 2 L of oxygen the pulse ox of 94%, no signs of pain, or respiratory distress, remains tachycardic with a heart rate in the 120s BPM, afebrile, respirations seen to be nonlabored, hemodynamically patient is stable. Patient has been initiated on Decadron for evidence of metastatic lung cancer, radiation oncology was consulted. Patient had previously numerous occasions declined any workup sick procedures for diagnosis of lung cancer, and workup during this admission shows significant progression of metastatic malignancy with brain metastasis and liver metastasis. We recommended hospice consultation. Based on discussions had by oncology with the family it was determined the patient's wishes were not to have treatment and patient is anticipated to be discharged to local [facility] and rehab under the hospice care Objective - Vital Signs Vital signs: Vital Signs Temp 98.1 F 12/26/19 08:00 Pulse 121 H 12/26/19 08:53 Resp 18 12/26/19 08:00 BP 157/72 12/26/19 08:00 Pulse Ox 94 L 12/26/19 08:00 Intake & Output 12/25/19 12/26/19 12/26/19 18:59 06:59 18:59 Intake Total 730 30 Output Total 300 Balance 730 -270 Weight 72 kg Intake: IV 20 Invasive Line 5 20 Intake, IV Titration 250 Amount Amiodarone 300 mg In 250 Dextrose 5% in Water 250 ml @ 0.5 MG/MIN 25 mls/hr IV .Q10H [facility] Rx#: [id number] Oral 480 10 Output: Urine 300 Other: Voiding Method Indwelling Catheter Indwelling Catheter # Voids 1 1 - Exam GENERAL EXAM: Lethargic, somewhat confused, but answering some questions appropriately, 51-year-old white male, thin, appears chronically ill, but no acute distress noted comfortable in no apparent distress. Somewhat of garbled speech HEAD: Normocephalic/atraumatic. EYES: Normal reaction of pupils, equal size. Conjunctiva pink, sclera white. NOSE: Clear with pink turbinates. THROAT: No erythema or exudates. NECK: No masses, no JVD, no thyroid enlargement, no adenopathy. CHEST: No chest wall deformity. Symmetrical expansion. LUNGS: Equal air entry with no crackles, wheeze, rhonchi or dullness. CVS: irregular rate and rhythm, normal S1 and S2, no gallops, no murmurs, no rubs ABDOMEN: Soft, nontender. No hepatosplenomegaly, normal bowel sounds, no guarding or rigidity. EXTREMITIES: No clubbing, no edema, no cyanosis, 2+ pulses and upper and lower extremities. MUSCULOSKELETAL: Muscle strength and tone normal. SPINE: No scoliosis or deformity SKIN: No rashes CENTRAL NERVOUS SYSTEM: Alert and oriented -1. No focal deficits, tone is normal in all 4 extremities. PSYCHIATRIC: Alert and oriented -1. - Labs CBC & Chem 7: 12/25/19 06:29 12/25/19 06:29 Assessment and Plan Plan: Assessment: #1. Enlarging known right lower lobe mass and progression of the left hilar mass causing complete occlusion of the left upper lobe pulmonary artery, post obstructive changes with left hemithorax/opacification with pleural fluid and pulmonary mass. There is known history of right lower lobe mass since 2018 and left hilar mass since 2019, and patient had previously declined any workup. Brain CT showed metastatic lesions, this is presumably metastatic lung cancer #2. Stage III COPD, FEV1 of 39% of predicted #3. Metastatic lung cancer with metastasis to the brain and liver #4. A. fib/A flutter with RVR, remains on amiodarone drip for rate control #5. Elevated d-dimer, CTA is negative for pulmonary embolism #6. Elevated liver transaminases likely related to liver metastasis #7. Altered mental status likely related to brain metastasis #8. Possible Valium overdose #9. Current every day smoker #10. 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 Continue hypoxemic respiratory failure related to severe COPD Plan: Agree with hospice consultation based on previously expressed wishes by the patient's regarding no treatment and no diagnostic workup for metastatic malignancy, most likely lung cancer. Patient appears to be in no acute distress, hospice consultation is pending and transfer to [facility]. I performed a history & physical examination of the patient and discussed their management with my nurse practitioner, Zohreh Claire. I reviewed the nurse practitioner's note and agree with the documented findings and plan of care. Lung sounds are positive for diminished breath sounds throughout the lung ferreira. The findings and the impression was discussed with the patient. I attest to the documentation by the nurse practitioner. Time with Patient: Less than 30
--- NOTE | 2019-12-26 12:55 | P.DS ---
Providers Date of admission: 12/23/19 20:02 Attending physician: Susi Adrian Consults: 12/23/19 20:00 Consult Physician Urgent Consulting Provider: [facility] Consult Reason/Comments: Atrial flutter with rapid ventricular response Do you want consulting provider notified?: Yes Consult Physician Urgent Consulting Provider: Catalina Kaminski Consult Reason/Comments: Metastatic brain lesions Do you want consulting provider notified?: Yes 12/24/19 15:23 Consult Physician Routine Consulting Provider: Micaela Van Consult Reason/Comments: Lung cancer known to Dr. Soto Do you want consulting provider notified?: Yes 12/24/19 21:32 Consult Physician Routine Consulting Provider: Julio Choudhury Consult Reason/Comments: brain mets Do you want consulting provider notified?: Yes, Notify in am Primary care physician: [facility] Course: 59-year-old pleasant male with history of COPD continued nicotine dependence who came in because of altered mental status patient is alert oriented 0 patient is completely confused at this time. Patient is having low back pain because of which patient has been taking Valium the past 6 days patient took about 54 pills of Valium. Patient unable to provide any history to me although patient doesn't have any fever chills patient was tachycardic with elevated d-dimer because of his CT angios the chest was obtained which did not show any pulmonary embolism but did show a large mass in the left coronary hilum and patient had a Head CAT scan which showed metastatic disease with multiple metastatic lesions to the brain probably primary being lung cancer. Patient EKG showed super ventricular tachycardia followed by atrial flutter with rapid ventricular response patient was initially on diltiazem with because of the drop in blood pressure patient was switched to amiodarone patient is on IV heparin patient was is now on metoprolol cardiology evaluated the patient. Patient urine drug screen is positive for benzos and marijuana. Patient doesn't have any pneumonia. Patient upon exam is wheezing does have COPD. Patient looks very older than his stated age. 12/25/2019 Patient had a CAT scan of the abdomen which showed extensive metastatic disease with primary being lung cancer patient in the past never had any and wanted any workup MRI was also obtained. I tried to get more information from the patient patient today appears to understand what I'm saying but cannot give me any answers probably because of the significant metastatic disease to the brain. Apparently doesn't know anything about his diagnosis patient never told his . I did discuss with his regarding his overall goals of care. Patient is quite weak and probably will not tolerate any kind of chemotherapy the only choice we at this time is hospice. After discussion with the it appears like patient doesn't want anything to be done all he wants is hospice. is agreeable I cannot get much of the history from the patient and the only reasonable option medically as well as hospice because of which I'm consulting hospice at this time. 12/26/2019 Patient mental status is even worse today. Patient will be discharged as hospice to either home hospice facility with hospice. PHYSICAL EXAMINATION: GENERAL: The patient is alert and oriented x0, not in any acute distress. Well developed, well nourished. He does have a gurgling sounds in the throat area HEENT: Pupils are round and equally reacting to light. EOMI. No scleral icterus. No conjunctival pallor. Normocephalic, atraumatic. No pharyngeal erythema. No thyromegaly. CARDIOVASCULAR: S1 and S2 present. No murmurs, rubs, or gallops. PULMONARY: Decreased air entry into bilateral lung ferreira [place] wheezing or crackles are appreciated some gurgly sounds throat area Wheezing or crackles are appreciated ABDOMEN: Soft, nontender, nondistended, normoactive bowel sounds. No palpable organomegaly. MUSCULOSKELETAL: No joint swelling or deformity. EXTREMITIES: No cyanosis, clubbing, or pedal edema. NEUROLOGICAL: Confused does not appear to have any focal deficits at this time but exam is limited because of limited to follow commands SKIN: No rashes. Assessment and Plan Plan: -Altered mental status, delirium secondary to toxic encephalopathy from Valium and metastatic disease to the brain may be contributing to his symptoms as well. Patient has lung cancer primary with metastatic disease patient is being discharged under hospice care -Metastatic disease to brain probably primary being lung cancer. multiple metastases to the abdomen and pelvis is -Probably primary lung cancer: Patient declined any workup in the past -Atrial flutter with rapidventricular rate. ued -Acute on chronic hypercapnic respiratory failure secondary to COPD exacerbation - elevated liver enzymes probably secondary to metastatic disease which was evident on CAT scan and ultrasound -Elevated TSH with normal T4 probably sick euthyroid syndrome patient will be discharged on hospice care Plan - Discharge Summary Discharge Rx Participant: Yes New Discharge Prescriptions: New LORazepam [Ativan] 1 mg PO QID PRN 6 Days #20 tab PRN Reason: Anxiety Atropine Ophth Soln 1% 5Ml [Isopto Atropine 1% 5Ml] 2 drops SUBLINGUAL Q4HR PRN #1 bottle PRN Reason: Excess Secretions MORPHINE ORAL JERMAINE CONC 20mg/mL [Roxanol Oral Soln Conc 20MG/ML] 20 mg PO Q4H PRN #30 ml PRN Reason: Pain Continue Albuterol Inhaler [Ventolin Hfa Inhaler] 1 puff INHALATION RT-Q4H PRN PRN Reason: Shortness Of Breath Albuterol Nebulized [Ventolin Nebulized] 2.5 mg INHALATION RT-Q4H Gabapentin [Neurontin] 400 mg PO TID Lidocaine 4% Cream [Lmx 4] 1 applic TOPICAL TID PRN PRN Reason: Pain traZODone HCL 50 mg PO HS Discontinued Diazepam [Valium] 5 mg PO BID@0800,1200 PRN PRN Reason: Anxiety Atorvastatin [Lipitor] 10 mg PO HS Budesonide/Formoterol Fumarate [Symbicort 160-4.5 Mcg Inhaler] 2 puff INHALATION BID Celecoxib [CeleBREX] 200 mg PO BID Diazepam [Valium] 10 mg PO HS PRN PRN Reason: Anxiety [place]-3 Fatty Acids/Fish Oil [Fish Oil 1,000 mg Softgel] 1 cap PO DAILY Discharge Medication List Albuterol Inhaler [Ventolin Hfa Inhaler] 1 puff INHALATION RT-Q4H PRN 12/23/19 [History] Albuterol Nebulized [Ventolin Nebulized] 2.5 mg INHALATION RT-Q4H 12/23/19 [History] Gabapentin [Neurontin] 400 mg PO TID 12/23/19 [History] Lidocaine 4% Cream [Lmx 4] 1 applic TOPICAL TID PRN 12/23/19 [History] traZODone HCL 50 mg PO HS 12/23/19 [History] Atropine Ophth Soln 1% 5Ml [Isopto Atropine 1% 5Ml] 2 drops SUBLINGUAL Q4HR PRN #1 bottle 12/26/19 [Rx] LORazepam [Ativan] 1 mg PO QID PRN 6 Days #20 tab 12/26/19 [Rx] MORPHINE ORAL JERMAINE CONC 20mg/mL [Roxanol Oral Soln Conc 20MG/ML] 20 mg PO Q4H PRN #30 ml 12/26/19 [Rx] Follow up Appointment(s)/Referral(s): [facility],Clinic [Primary Care Provider] - 1-2 days Discharge Disposition: DISCH TO HOSPICE [facility]
[2019-12-26 15:29] VITALS: RESP 22
[2019-12-26 15:39] VITALS: PULSE 118
--- NOTE | 2019-12-28 07:53 | CDI ---
Documentation Clarification Form Date: 12/28/2019 07:37:23 AM From: Janice Fletcher RN, CCDS Admit Date: 12/23/2019 08:02:00 PM Patient Name: Syed Delarosa Visit Number: [id number] Discharge Date: 12/26/2019 04:15:00 PM ATTENTION: The Clinical Documentation Specialists (CDI) and [facility] Coding Staff appreciate your assistance in clarifying documentation. Please respond to the clarification below the line at the bottom and electronically sign. The CDI & [facility] Coding staff will review the response and follow-up if needed. Please note: Queries are made part of the Legal Health Record. If you have any questions, please contact the author of this message via ITS. Dr. Natahlia Londono Atrial Flutter is documented in the ED assessment, H/P and in cardiology progress note on 12/23,further specificity for the type of atrial flutter is requested. History/Risk factors: COPD, Lung ca with Metastatic disease Clinical Indicators:59-year-old male present with altered mental status after taking valium past 6 days. In ED EKG showed super ventricular tachycardia followed by atrial flutter with rapid ventricular response 5/2 Vital signs: 112/70 130 18 96 % 2/L NC 5/2 Troponin 0.012 Treatment: Amiodarone IV 1 mg/min (titrate) Heparin 7.38 mls/hr (titrate) .9 Saline @ 75 mls/hr In your professional opinion, in order to capture the severity of condition; can you please clarify the type of Atrial Flutter if known? Typical/Type I Atypical/Type II Other, please specify Unable to determine (Last Revision: November 2017) Type 1 MTDD
== END 2019-12-26 16:15 | DRG 917 ==
LOC: EC 16:36 → 3SCARD 20:02
PROVIDERS: ADMIT Hospitalist; ATTEND Hospitalist
DX: T42.4X1A Poisoning by benzodiazepines, accidental (unintentional), initial encounter (principal); G92 Toxic encephalopathy; G93.6 Cerebral edema; J96.21 Acute and chronic respiratory failure with hypoxia; J96.22 Acute and chronic respiratory failure with hypercapnia; C79.31 Secondary malignant neoplasm of brain; C34.90 Malignant neoplasm of unspecified part of unspecified bronchus or lung; C78.7 Secondary malignant neoplasm of liver and intrahepatic bile duct; C79.89 Secondary malignant neoplasm of other specified sites; I47.1 Supraventricular tachycardia; I48.92 Unspecified atrial flutter; J94.8 Other specified pleural conditions; J98.11 Atelectasis; E07.81 Sick-euthyroid syndrome; F17.210 Nicotine dependence, cigarettes, uncomplicated; I48.91 Unspecified atrial fibrillation; J43.9 Emphysema, unspecified; Z51.5 Encounter for palliative care; Z66 Do not resuscitate; R40.2352 Coma scale, best motor response, localizes pain, at arrival to emergency department; R40.2132 Coma scale, eyes open, to sound, at arrival to emergency department; Z20.828 Contact with and (suspected) exposure to other viral communicable diseases; R40.2242 Coma scale, best verbal response, confused conversation, at arrival to emergency department; Z79.1 Long term (current) use of non-steroidal anti-inflammatories (NSAID); Z79.51 Long term (current) use of inhaled steroids; Z79.899 Other long term (current) drug therapy; Z87.01 Personal history of pneumonia (recurrent); Z89.511 Acquired absence of right leg below knee
CPT/HCPCS: 36415; 70200; 70450; 70553; 71275; 74177; 76705; 80053; 80074; 80306; 81001; 82140; 82565; 84439; 84443; 84484; 84520; 85025; 85379; 85610; 85730; 87635; 93005; 93306; 94640; 94760; 96361; 96365; 96366; 96368; 96374; 96375; 99291